=== PATIENT | male | born 1980 | race Caucasian/White ===

== ENCOUNTER 2017-03-29 06:04 | Emergency (ER) | payer MEDICAID ==
[~2017-03-29] VITALS: Ht 182.9 cm; Wt 136.2 kg
[~2017-03-29 06:04] MED LIST: AC500T; ACYC200C PO; CLIN300C3 PO; CPR500T PO; DCS100C PO; HYDR-3714 PO; HYDR-3720 PO; HYDR-756 PO; HYDR2TAB31 PO; INDO50CA PO; METH4TAB PO; MUPI22OI TP; NAPR500T PO; OMEP20CA12 PO; OMEP20TA2 PO; ONDA-42 SL; ONDA-43 PO; ONDA4TAB8 PO; PRM25T PO; SULF1TAB7 PO; TRAM-21 PO
[2017-03-29] MEDS ORDERED: AMOX500C2 (06:17)
[2017-03-29] MEDS ORDERED: FLUC100T6 (06:17)
[2017-03-29] MEDS ORDERED: ONDANSETRON 4 MG (ZOFRAN) ORAL DISSOLVE TAB SL STA (06:20)
--- NOTE | 2017-03-29 06:27 | ED General ---
General Chief Complaint: Abdominal/GI Problems Stated Complaint: N/V/D WITH SOA Nursing Triage Note: c/o n/v/d for a few weeks Nursing Sepsis Screen: No Definite Risk Source of Information: Patient Exam Limitations: No Limitations History of Present Illness Time Seen by Provider: 06:13 Initial Comments Here with report of nausea and vomiting and occasional diarrhea. Currently being treated for strep throat and possible thrush with amoxicillin and antifungal that he doesn't remember the name of. Has had some nausea and vomiting. States that the mucus is part of the problem. He was at work tonight when he was vomiting a couple times and was sent home. States he is able to drink fluids and has been going to work nightly. Has had some diarrhea. Denies significant abdominal pain. Main concern is he wants to protect his job and would like help with the vomiting started go back to work tonight. Does report nasal congestion sore throat that is getting a little better. Timing/Duration: 1 Week, Changing Over Time Severity: Moderate Associated Systoms: Cough, No Fever/Chills, Nausea/Vomiting, No Seizure Allergies and Home Medications Allergies Coded Allergies: No Known Drug Allergies (Unverified , 08/17/08) Home Medications Amoxicillin 500 Mg Capsule, (Reported) Fluconazole 100 Mg Tablet, (Reported) Constitutional: see HPI, No chills, No fever EENTM: nose congestion, throat pain, No ear pain Respiratory: cough, short of breath (mild intermittent) Cardiovascular: no symptoms reported Gastrointestinal: No abdominal pain, diarrhea, nausea, vomiting Genitourinary: no symptoms reported Musculoskeletal: no symptoms reported Skin: no symptoms reported Psychiatric/Neurological: No Symptoms Reported Past Kzdfgez-Geqjzl-Cyhluq Hx Patient Social History Alcohol Use: Denies Use Number of Drinks Today: GG Alcohol Beverage of Choice: Whiskey Recreational Drug Use: No Smoking Status: Never a Smoker Recent Foreign Travel: No Contact w/Someone Who Travel: No Recent Infectious Disease Expo: No Recent Hopitalizations: No Physical Abuse: No Sexual Abuse: No Immunizations Up To Date Tetanus Booster (TDap): Unknown Seasonal Allergies Seasonal Allergies: Yes Surgeries History of Surgeries: Yes Surgeries: Appendectomy, Gallbladder, Tonsillectomy Respiratory History of Respiratory Disorde: No Cardiovascular History of Cardiac Disorders: No Neurological History of Neurological Disord: No Reproductive System Hx Reproductive Disorders: No Sexually Transmitted Disease: No HIV/AIDS: No Gastrointestinal History of Gastrointestinal Di: Yes Gastrointestinal Disorders: Gastroesophageal Reflux, Gall Bladder Disease Musculoskeletal History of Musculoskeletal Dis: No Endocrine History of Endocrine Disorders: No HEENT Loss of Vision: Denies Hearing Impairment: Denies Cancer History of Cancer: No Psychosocial History of Psychiatric Problem: No Suicide Risk Score: 0 Integumentary History of Skin or Integumenta: No Blood Transfusions History of Blood Disorders: No Adverse Reaction to a Blood Tr: No Reviewed Nursing Assessment Reviewed/Agree w Nursing PMH: Yes Family Medical History Family Medial History: Alcoholism Arthritis Asthma Cardiovascular disease Colon cancer Coronary thrombosis Diabetes mellitus Drug abuse Hypertension Myocardial infarction Psychosocial problem Respiratory disorder Physical Exam Vital Signs Vital Sign - Last 12Hours 03/29/17 06:14 Temp 98.4 Pulse 80 Resp 18 B/P (MAP) 135/94 (108) Pulse Ox 95 Capillary Refill : Less Than 3 Seconds General Appearance: No Apparent Distress, WD/WN HEENT: PERRL/EOMI, TMs Normal, Pharyngeal Erythema, Tonsillar Enlargement, Other (uvular swelling and redness) Neck: Full Range of Motion, Normal Inspection, Non Tender, Supple Respiratory: Lungs Clear, Normal Breath Sounds Cardiovascular: Regular Rate, Rhythm, No Murmur Gastrointestinal: Non Tender, Soft Back: Normal Inspection, No CVA Tenderness, No Vertebral Tenderness Neurologic/Psychiatric: Alert, Oriented x3 Skin: Normal Color, Warm/Dry Progress/Results/Core Measures Suspected Sepsis Recent Fever Within 48 Hours: No Infection Criteria Present: None New/Unexplained Altered Menta: No Sepsis Screen: No Definite Risk Sepsis Diagnosis: SIRS Temperature:98.4 Pulse: 80 Respiratory Rate: 18 Blood Pressure 135 /94 Mean: 108 Results/Orders My Orders Orders - GISSELLE YUNG MD Zofran Sl (03/29/17 06:20) Dexamethasone Injection (Decadron Inject (03/29/17 06:30) Vital Signs/I&O Vital Sign - Last 12Hours 03/29/17 06:14 Temp 98.4 Pulse 80 Resp 18 B/P (MAP) 135/94 (108) Pulse Ox 95 Capillary Refill : Less Than 3 Seconds Blood Pressure Mean: 108 Progress Note : Progress Note Seen and evaluated. Patient has mild symptoms currently so evaluation was limited. We will provide prescriptions as outpatient for nausea and vomiting. Zofran 4 mg by mouth given now. We will give Decadron 10 mg IM now for the upper respiratory symptoms. Discharged home with return precautions. Patient verbalize understanding instructions and agreement with plan. Departure Impression Impression: Primary Impression: Nausea and vomiting Qualified Codes: R11.2 - Nausea with vomiting, unspecified Additional Impression: Upper respiratory infection with cough and congestion Disposition: 01 HOME, SELF-CARE Condition: Improved Departure-Patient Inst. Decision time for Depature: 06:22 Referrals: [facility] (PCP/Family) Primary Care Physician Patient Instructions: Bacterial Upper Respiratory Infection, Adult (DC), Nausea and Vomiting, Adult Add. Discharge Instructions: All discharge instructions reviewed with patient and/or family. Voiced understanding. Take medications as directed. Drink plenty of fluids by drinking small amounts frequently. Clear liquid diet for 24 hours and then advance as tolerated. Follow-up with your Dr. in a few days for recheck. Return for worse pain, fever , vomiting, weakness, breathing problems or other concerns as needed. Scripts Ondansetron (Ondansetron Odt) 4 Mg Tab.rapdis 4 MG PO Q4H Y for NAUSEA/VOMITING, #8 TAB 0 Refills Prov: GISSELLE YUNG MD 03/29/17 Work/School Note: Work Release Form Date Seen in the Emergency Department: Mar 29, 2017 Return to Work: Mar 29, 2017 Restrictions: No Restrictions GISSELLE YUNG MD Mar 29, 2017 06:27
[2017-03-29] MEDS ORDERED: DEXAMETHASONE 10 MG/ML (DECADRON) 1 ML VIAL IM ONE (06:30)
[2017-03-29] MEDS ORDERED: ONDA4TAB11 PO (06:32)
[2017-03-29 06:43] VITALS: BP 135/94
== END 2017-03-29 06:43 | disposition home or self-care (01) ==
LOC: EDUNIT# 06:04 → ER 06:07
DX: J06.9 Acute upper respiratory infection, unspecified (principal); R11.2 Nausea with vomiting, unspecified; K21.9 Gastro-esophageal reflux disease without esophagitis; Z87.19 Personal history of other diseases of the digestive system; Z90.49 Acquired absence of other specified parts of digestive tract; Z82.49 Family history of ischemic heart disease and other diseases of the circulatory system; Z90.89 Acquired absence of other organs
CPT/HCPCS: 99284

== ENCOUNTER 2017-05-09 08:20 | Inpatient (IN) | payer MEDICAID ==
[~2017-05-09] VITALS: Ht 180.3 cm; Wt 122.5 kg
[~2017-05-09 08:20] MED LIST changes: +AMOX500C2; +FLUC100T6; +NAPR-1071 PO; -NAPR500T PO; +ONDA4TAB11 PO
--- OUTSIDE RECORDS SUMMARY | 2017-05-09 08:27 | XMS REPORT | Clinical Summary ---
Author Author [facility] Address Unknown Phone Unavailable Allergies Not on File Current Medications Not on file Active Problems Not on file Social History Tobacco Use Types Packs/Day Years Used Date Never Assessed Sex Assigned at Date Recorded Not on file Plan of Treatment Health Maintenance Due Date Last Done Comments DTaP,Tdap,and Td Vaccines 10/30/1998 (1 - Tdap) Influenza Vaccine (#1) 2016 Results Not on filefrom Last 3 Months
--- OUTSIDE RECORDS SUMMARY | 2017-05-09 08:27 | XMS REPORT ---
Author Author KENNY ROGERS Organization [facility] Address [address] [place] [address] Care Team Providers Care Package Line Relief Operator Name Role Phone KENNY ROGERS Unavailable PROBLEMS Type Condition ICD9-CM Code [id number] Code Onset Dates Condition Status SNOMED Code Problem Anxiety F41.9 Active 64083477 Problem H. 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 08628752 Problem Acute gout of right ankle, unspecified cause M10.9 Active 325002808 Problem Stressful life event affecting family Z63.79 Active 370755312 Problem Reflux esophagitis K21.0 Active 241105171 ALLERGIES No Information SOCIAL HISTORY Never Assessed PLAN OF CARE VITAL SIGNS MEDICATIONS No Known Medications RESULTS Name Result Date Reference Range A1C 2016-07-07 NTI Serum Gel Tube Hemoglobin A1c Please note Please Note: Request Problem Hemoglobin A1c PROCEDURES Procedure Date Ordered Result Body Site GLYCATED HEMOGLOBIN TEST July 07, 2016 IMMUNIZATIONS No Known Immunizations MEDICAL (GENERAL) HISTORY Type Description Date Medical History Gout Medical History acid reflux Surgical History tonsillectomy and adenoidectomy Surgical History appendectomy Surgical History cholecystectomy Surgical History Colonoscopy/EGD at [facility] 05/2016 Hospitalization History Kidney Failure 03/2016
--- OUTSIDE RECORDS SUMMARY | 2017-05-09 08:27 | XMS REPORT ---
Author Author KENNY ROGERS Organization [facility] Address [address] [place] [address] Care Team Providers Care Wire Annealer Name Role Phone KENNY ROGERS Unavailable PROBLEMS Type Condition ICD9-CM Code [id number] Code Onset Dates Condition Status SNOMED Code Problem Anxiety F41.9 Active 68318802 Problem H. 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 Drug Allergy Apr, Active SOCIAL HISTORY Never Assessed PLAN OF CARE Activity Details Follow Up 1 Week Reason:establish care gout VITAL SIGNS Height 70 in 2016-05-19 Weight 285.2 lbs 2016-05-19 Temperature 98.0 degrees Fahrenheit 2016-05-19 Heart Rate 110 bpm 2016-05-19 Respiratory Rate 22 2016-05-19 BMI 40.92 kg/m2 2016-05-19 Blood pressure systolic 128 mmHg 2016-05-19 Blood pressure diastolic 80 mmHg 2016-05-19 MEDICATIONS Medication Instructions Dosage Frequency Start Date End Date Duration Status Amlodipine Besylate 10 MG Orally Once a day 1 tablet 24h 0 Active Uloric 40 MG Orally Once a day 1 tablet 24h Active Coreg 12.5 MG Orally 2 times a day 1 tablet 12h 0 Active PredniSONE 10 mg Orally Once a day 3 tablets 24h Apr, 2 May, 2016 10 days Active RESULTS Name Result Date Reference Range [facility] 2016-05-19 Glucose, Serum 148 65-99 BUN 12 6-20 Creatinine, Serum 1.08 0.76-1.27 eGFR If NonAfricn Am 88 >59 eGFR If Africn Am 102 >59 BUN/Creatinine Ratio 11 8-19 Sodium, Serum 140 134-144 Potassium, Serum 4.4 3.5-5.2 Chloride, Serum 99 96-106 Carbon Dioxide, Total 23 18-29 Calcium, Serum 9.4 8.7-10.2 Protein, Total, Serum 7.6 6.0-8.5 Albumin, Serum 4.6 3.5-5.5 Globulin, Total 3.0 1.5-4.5 A/G Ratio 1.5 1.1-2.5 Bilirubin, Total 0.4 0.0-1.2 Alkaline Phosphatase, S 80 39-117 AST (SGOT) 27 0-40 ALT (SGPT) 33 0-44 PROCEDURES Procedure Date Ordered Result Body Site [facility] May 19, 2016 VENIPUNCT, ROUTINE* May 19, 2016 IMMUNIZATIONS No Known Immunizations MEDICAL (GENERAL) HISTORY Type Description Date Medical History Gout Medical History acid reflux Surgical History tonsillectomy and adenoidectomy Surgical History appendectomy Surgical History cholecystectomy Surgical History Colonoscopy/EGD at [facility] 05/2016 Hospitalization History Kidney Failure 03/2016
--- OUTSIDE RECORDS SUMMARY | 2017-05-09 08:27 | XMS REPORT ---
Author Author KENNY ROGERS [facility] Address [address] [place] [address] Care Team Providers Care Professional Soccer Player Name Role Phone KENNY ROGERS Unavailable PROBLEMS Type Condition ICD9-CM Code [id number] Code Onset Dates Condition Status SNOMED Code Problem Anxiety F41.9 Active 07699310 Problem H. 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 99256165 Problem Acute gout of right ankle, unspecified cause M10.9 Active 233256281 Problem Stressful life event affecting family Z63.79 Active 779881708 Problem Reflux esophagitis K21.0 Active 578090226 ALLERGIES No Information SOCIAL HISTORY Never Assessed PLAN OF CARE VITAL SIGNS MEDICATIONS No Known Medications RESULTS Name Result Date Reference Range LEAD, BLOOD (ADULT) 2016-07-07 Lead, Blood (Adult) 1 0-19 TESTOSTERONE, FREE AND TOTAL 2016-07-07 Testosterone, Serum [phone] Comment: Free Testosterone(Direct) 15.5 8.7-25.1 THYROID ANALYZER 2016-07-07 TSH 1.820 0.450-4.500 URIC ACID, SERUM 2016-07-07 Uric Acid, Serum 8.9 3.7-8.6 A1C 2016-07-07 Hemoglobin A1c 5.5 4.8-5.6 VITAMIN B12 2016-07-07 Vitamin B12 518 211-946 CBC 2016-07-07 WBC 13.1 3.4-10.8 RBC 5.30 4.14-5.80 Hemoglobin 15.5 12.6-17.7 Hematocrit 46.4 37.5-51.0 MCV 88 79-97 MCH 29.2 26.6-33.0 MCHC 33.4 31.5-35.7 RDW 15.3 12.3-15.4 Platelets 321 150-379 Neutrophils 72 Lymphs 20 Monocytes 8 Eos 0 Basos 0 Neutrophils (Absolute) 9.3 1.4-7.0 Lymphs (Absolute) 2.6 0.7-3.1 Monocytes(Absolute) 1.1 0.1-0.9 Eos (Absolute) 0.0 0.0-0.4 Baso (Absolute) 0.0 0.0-0.2 Immature Granulocytes 0 Immature Grans (Abs) 0.0 0.0-0.1 VITAMIN D, 25-H 2016-07-07 Vitamin D, 25-Hydroxy 24.3 30.0-100.0 LIPID PANEL 2016-07-07 Cholesterol, Total 243 100-199 Triglycerides 156 0-149 HDL Cholesterol 48 >39 VLDL Cholesterol Josue 31 5-40 LDL Cholesterol Calc 164 0-99 CMP 2016-07-07 Glucose, Serum 100 65-99 BUN 8 6-20 Creatinine, Serum 1.00 0.76-1.27 eGFR If NonAfricn Am 96 >59 eGFR If Africn Am 111 >59 BUN/Creatinine Ratio 8 8-19 Sodium, Serum 141 134-144 Potassium, Serum 4.6 3.5-5.2 Chloride, Serum 98 96-106 Carbon Dioxide, Total 23 18-29 Calcium, Serum 9.8 8.7-10.2 Protein, Total, Serum 7.7 6.0-8.5 Albumin, Serum 4.7 3.5-5.5 Globulin, Total 3.0 1.5-4.5 A/G Ratio 1.6 1.2-2.2 Bilirubin, Total 0.5 0.0-1.2 Alkaline Phosphatase, S 59 39-117 AST (SGOT) 20 0-40 ALT (SGPT) 26 0-44 Written Authorization 2016-07-07 Written Authorization PROCEDURES Procedure Date Ordered Result Body Site ASSAY OF BLOOD/URIC ACID July 07, 2016 VENIPUNCT, ROUTINE* July 07, 2016 ASSAY OF LEAD July 07, 2016 ASSAY OF TOTAL TESTOSTERONE July 07, 2016 LIPID PANEL July 07, 2016 ASSAY OF VITAMIN D July 07, 2016 COMPREHEN METABOLIC PANEL July 07, 2016 ASSAY THYROID STIM HORMONE July 07, 2016 ASSAY OF TESTOSTERONE July 07, 2016 COMPLETE CBC W/AUTO DIFF WBC July 07, 2016 VITAMIN B-12 July 07, 2016 IMMUNIZATIONS No Known Immunizations MEDICAL (GENERAL) HISTORY Type Description Date Medical History Gout Medical History acid reflux Surgical History tonsillectomy and adenoidectomy Surgical History appendectomy Surgical History cholecystectomy Surgical History Colonoscopy/EGD at [facility] 05/2016 Hospitalization History Kidney Failure 03/2016
--- OUTSIDE RECORDS SUMMARY | 2017-05-09 08:27 | XMS REPORT ---
Author Author KENNY ROGERS [facility] Address [address] [place] [address] Care Team Providers Care Associate Store Director Name Role Phone KENNY ROGERS Unavailable PROBLEMS Type Condition ICD9-CM Code [id number] Code Onset Dates Condition Status SNOMED Code Problem Anxiety F41.9 Active 96087015 Problem H. 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 46277762 Problem Acute gout of right ankle, unspecified cause M10.9 Active 416130769 Problem Stressful life event affecting family Z63.79 Active 667407764 Problem Reflux esophagitis K21.0 Active 685810851 ALLERGIES No Information SOCIAL HISTORY Never Assessed PLAN OF CARE VITAL SIGNS MEDICATIONS No Known Medications RESULTS No Results PROCEDURES No Known procedures IMMUNIZATIONS No Known Immunizations MEDICAL (GENERAL) HISTORY Type Description Date Medical History Gout Medical History acid reflux Surgical History tonsillectomy and adenoidectomy Surgical History appendectomy Surgical History cholecystectomy Surgical History Colonoscopy/EGD at [facility] 05/2016 Hospitalization History Kidney Failure 03/2016
--- OUTSIDE RECORDS SUMMARY | 2017-05-09 08:27 | XMS REPORT ---
Author Author KENNY ROGERS [facility] Address [address] [place] [address] Care Team Providers Care Bulk Plant Agent Name Role Phone KENNY ROGERS Unavailable PROBLEMS Type Condition ICD9-CM Code [id number] Code Onset Dates Condition Status SNOMED Code Problem Anxiety F41.9 Active 84774065 Problem H. 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 11787820 Problem Acute gout of right ankle, unspecified cause M10.9 Active 477804971 Problem Stressful life event affecting family Z63.79 Active 430759087 Problem Reflux esophagitis K21.0 Active 433089149 ALLERGIES No Information SOCIAL HISTORY Never Assessed PLAN OF CARE VITAL SIGNS MEDICATIONS No Known Medications RESULTS No Results PROCEDURES No Known procedures IMMUNIZATIONS No Known Immunizations MEDICAL (GENERAL) HISTORY Type Description Date Medical History Gout Medical History acid reflux Surgical History tonsillectomy and adenoidectomy Surgical History appendectomy Surgical History cholecystectomy Surgical History Colonoscopy/EGD at [facility] 05/2016 Hospitalization History Kidney Failure 03/2016
--- OUTSIDE RECORDS SUMMARY | 2017-05-09 08:27 | XMS REPORT ---
Author Author ABENA MCGINNIS Organization [facility] Address [address] [place] [address] Care Team Providers Care Warpman Name Role Phone RAHEL ABENA Unavailable PROBLEMS Type Condition ICD9-CM Code [id number] Code Onset Dates Condition Status SNOMED Code Problem Anxiety F41.9 Active 92675295 Problem H. 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 Unknown Non Drug Allergy Apr, Unknown SOCIAL HISTORY No smoking Hx information available PLAN OF CARE Activity Details Follow Up prn Reason: VITAL SIGNS Temperature 98.1 degrees Fahrenheit 2016-04-29 Heart Rate 88 bpm 2016-04-29 Respiratory Rate 22 2016-04-29 Blood pressure systolic 122 mmHg 2016-04-29 Blood pressure diastolic 86 mmHg 2016-04-29 MEDICATIONS Medication Instructions Dosage Frequency Start Date End Date Duration Status MethylPREDNISolone 4 MG as directed Apr, Active Zofran ODT 4 MG Orally every 8 hours, PRN 1 tablet on the tongue and allow to dissolve Apr, 03 days Active RESULTS No Results PROCEDURES Procedure Date Ordered Related Diagnosis Body Site Office Visit, Est Pt., Level 3 Apr 29, 2016 SOLUMEDROL (UP TO 125 MG) Apr 29, 2016 THER/PROPH/DIAG INJ, SC/IM Apr 29, 2016 IMMUNIZATIONS Vaccine Route Administration Date Status SOLUMEDROL (UP TO 125 MG) IM Intramuscular Apr 29, 2016 Administered
--- OUTSIDE RECORDS SUMMARY | 2017-05-09 08:28 | XMS REPORT ---
Author ARIEL Chaudhry Organization [employer] Address Unknown Phone Unavailable Care Team Providers Care Pet Resort Concierge Name Role Phone ARIEL TALBOT CP Unavailable Allergies No Known Allergies Problems Problem Type Condition Code Onset Dates Condition Status Problem Health examination of defined subpopulation V70.5 Active Medications No Known Medications Results No Known Results Summary Purpose [employer] Submission
--- OUTSIDE RECORDS SUMMARY | 2017-05-09 08:28 | XMS REPORT ---
Author Author ROSY SIMON [facility] Address [address] [place] [address] Care Team Providers Care Cab Station Attendant Name Role Phone ROSY SIMON Unavailable PROBLEMS Type Condition ICD9-CM Code [id number] Code Onset Dates Condition Status SNOMED Code Problem Anxiety F41.9 Active 62659596 Problem H. 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 51466510 Problem Acute gout of right ankle, unspecified cause M10.9 Active 323761706 Problem Stressful life event affecting family Z63.79 Active 015212858 Problem Reflux esophagitis K21.0 Active 336556952 ALLERGIES No Information SOCIAL HISTORY Never Assessed PLAN OF CARE VITAL SIGNS MEDICATIONS Medication Instructions Dosage Frequency Start Date End Date Duration Status Albuterol Sulfate HFA 108 (90 Base) MCG/ACT Inhalation twice a day 2 puffs as needed 12h 30 Apr, 2016 0 days Active RESULTS No Results PROCEDURES No Known procedures IMMUNIZATIONS No Known Immunizations MEDICAL (GENERAL) HISTORY Type Description Date Medical History Gout Medical History acid reflux Surgical History tonsillectomy and adenoidectomy Surgical History appendectomy Surgical History cholecystectomy Surgical History Colonoscopy/EGD at [facility] 05/2016 Hospitalization History Kidney Failure 03/2016
--- OUTSIDE RECORDS SUMMARY | 2017-05-09 08:28 | XMS REPORT ---
Author Author KENNY ROGERS Organization [facility] Address [address] [place] [address] Care Team Providers Care Transit Planning Manager Name Role Phone KENNY ROGERS Unavailable PROBLEMS Type Condition ICD9-CM Code [id number] Code Onset Dates Condition Status SNOMED Code Problem Anxiety F41.9 Active 38793939 Problem H. 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
[2017-05-09] MEDS ORDERED: cefTRIAXone INJECTION 1,000 MG in NS (IVPB) 50 ML IV ONE (08:30)
--- OUTSIDE RECORDS SUMMARY | 2017-05-09 08:30 | XMS REPORT | Continuity of Care Document ---
Author Author [facility] Organization [facility] Address Unknown Phone Unavailable Allergies Active Description Code Type Severity Reaction Onset Reported/Identified Relationship to Patient Clinical Status Yes No Known Drug Allergies [id number] Drug Allergy Mild N/A 08/17/2008 Medications There is no data. Problems Date Dx Coded Attending Type Code Diagnosis Diagnosed By 08/02/2010 Ot 786.50 CHEST PAIN NOS 08/02/2010 Ot 305.1 TOBACCO USE DISORDER 08/02/2010 Ot 530.81 ESOPHAGEAL REFLUX 08/02/2010 Ot 786.59 CHEST PAIN NEC 06/10/2014 CHECO MCKEON Ot 706.2 SEBACEOUS CYST 09/01/2014 CRISTINA MELÉNDEZ BURR SANDER Ot 074.0 HERPANGINA 09/01/2014 CRISTINA MELÉNDEZ BURR SANDER Ot 462 ACUTE PHARYNGITIS 11/01/2014 NELLY SNELL, ANDREEA Witt Ot 574.00 CHOLELITH W AC CHOLECYST 11/01/2014 NELLY SNELL, ANDREEA Witt Ot 787.03 VOMITING ALONE 11/06/2014 ANDREEA VILLEGAS MD Ot 574.20 CHOLELITHIASIS NOS 11/06/2014 NELLY SNELL, ANDREEA Witt Ot 789.01 ABDOMINAL PAIN, RIGHT UPPER QUADRANT 11/14/2014 ELIOT MCINTYRE DO Ot 574.20 CHOLELITHIASIS NOS 11/14/2014 ELIOT MCINTYRE DO Ot 789.00 ABDOMINAL PAIN, UNSPECIFIED SITE 11/22/2014 JING FLANNERY MD Ot 575.0 ACUTE CHOLECYSTITIS 11/22/2014 JING FLANNERY MD Ot 789.00 ABDOMINAL PAIN, UNSPECIFIED SITE 11/23/2014 HELGA MAYO DO Ot 574.10 CHOLELITH W CHOLECYS NEC 11/23/2014 HELGA MAYO DO Ot 574.20 11/28/2014 JING FLANNERY MD Ot 338.18 OTHER ACUTE POSTOPERATIVE PAIN 11/28/2014 MAYO DO, HELGA D Ot 574.20 11/28/2014 MAYO DO, HELGA D Ot V72.84 11/28/2014 MAYO DO, HELGA D Ot V74.8 12/18/2014 MAYO DO, HELGA D Ot 574.20 12/18/2014 MAYO DO, HELGA D Ot V72.84 12/18/2014 MAYO DO, HELGA D Ot V74.8 01/11/2015 MAYO DO, HELGA D Ot 574.20 01/11/2015 MAYO DO, HELGA D Ot V72.84 01/11/2015 MAYO DO, HELGA D Ot V74.8 01/11/2015 CRISTINA MELÉNDEZ BURR SANDER Ot 274.01 ACUTE GOUTY ARTHROPATHY 01/11/2015 CRISTINA MELÉNDEZ APRN Ot 729.81 SWELLING OF LIMB 01/11/2015 MAYO DO, HELGA D Ot 574.20 01/11/2015 MAYO DO, HELGA D Ot V72.84 01/11/2015 MAYO DO, HELGA D Ot V74.8 12/08/2015 MAYO DO, HELGA D Ot 574.20 CHOLELITHIASIS NOS 12/08/2015 MAYO DO, HELGA D Ot V72.84 EXAM PRE-OPERATIVE NOS 12/08/2015 MAYO DO, HELGA D Ot V74.8 SCREEN-BACTERIAL DIS NEC 12/08/2015 AVA SNELL, SOHA Pearson Ot M10.072 IDIOPATHIC GOUT, LEFT ANKLE AND FOOT 12/08/2015 MAYO DO, HELGA D Ot 574.20 CHOLELITHIASIS NOS 12/08/2015 MAYO DO, HELGA D Ot V72.84 EXAM PRE-OPERATIVE NOS 12/08/2015 MAYO DO, HELGA D Ot V74.8 SCREEN-BACTERIAL DIS NEC 12/11/2015 AVA SNELL, SOHA Pearson Ot M10.072 IDIOPATHIC GOUT, LEFT ANKLE AND FOOT 04/06/2016 CRISTINA MELÉNDEZ APRN Ot M10.072 IDIOPATHIC GOUT, LEFT ANKLE AND FOOT 04/08/2016 CRISTINA MELÉNDEZ APRN Ot M10.072 IDIOPATHIC GOUT, LEFT ANKLE AND FOOT 04/10/2016 NUHA SNELL, CIARA Story Ot F12.10 CANNABIS ABUSE, UNCOMPLICATED 04/10/2016 CIARA BREEN MD Ot K21.9 GASTRO-ESOPHAGEAL REFLUX DISEASE WITHOUT 04/10/2016 CIARA BREEN MD Ot K52.9 NONINFECTIVE GASTROENTERITIS AND COLITIS 04/10/2016 CIARA BREEN MD Ot M54.9 DORSALGIA, UNSPECIFIED 04/10/2016 CIARA BREEN MD Ot N28.9 DISORDER OF KIDNEY AND URETER, UNSPECIFI 04/10/2016 CIARA BREEN MD Ot F12.10 CANNABIS ABUSE, UNCOMPLICATED 04/10/2016 CIARA BREEN MD Ot K21.9 GASTRO-ESOPHAGEAL REFLUX DISEASE WITHOUT 04/10/2016 CIARA BREEN MD Ot K52.9 NONINFECTIVE GASTROENTERITIS AND COLITIS 04/10/2016 CIARA BREEN MD Ot M54.9 DORSALGIA, UNSPECIFIED 04/10/2016 CIARA BREEN MD Ot N28.9 DISORDER OF KIDNEY AND URETER, UNSPECIFI 03/29/2017 HELGA MAYO DO Ot 574.20 CHOLELITHIASIS NOS 03/29/2017 HELGA MAYO DO, Ot V72.84 EXAM PRE-OPERATIVE NOS 03/29/2017 HELGA MAYO DO Ot V74.8 SCREEN-BACTERIAL DIS NEC 03/29/2017 GISSELLE YUNG MD, Ot J06.9 ACUTE UPPER RESPIRATORY INFECTION, UNSPE 03/29/2017 GISSELLE YUNG MD, Ot K21.9 GASTRO-ESOPHAGEAL REFLUX DISEASE WITHOUT 03/29/2017 GISSELLE YUNG MD Ot R11.2 NAUSEA WITH VOMITING, UNSPECIFIED 03/29/2017 GISSELLE YUNG MD, Ot Z82.49 FAMILY HX OF ISCHEM HEART DIS AND OTH DI 03/29/2017 GISSELLE YUNG MD, Ot Z87.19 PERSONAL HISTORY OF OTHER DISEASES OF TH 03/29/2017 GISSELLE YUNG MD, Ot Z90.49 ACQUIRED ABSENCE OF OTHER SPECIFIED PART 03/29/2017 GISSELLE YUNG MD, Ot Z90.89 ACQUIRED ABSENCE OF OTHER ORGANS 03/29/2017 HELGA MAYO DO Ot 574.20 CHOLELITHIASIS NOS 03/29/2017 HELGA MAYO DO, Ot V72.84 EXAM PRE-OPERATIVE NOS 03/29/2017 HELGA MAYO DO, Ot V74.8 SCREEN-BACTERIAL DIS NEC 04/01/2017 GISSELLE YUNG MD, Ot J06.9 ACUTE UPPER RESPIRATORY INFECTION, UNSPE 04/01/2017 GISSELLE YUNG MD, Ot K21.9 GASTRO-ESOPHAGEAL REFLUX DISEASE WITHOUT 04/01/2017 GISSELLE YUNG MD, Ot R11.2 NAUSEA WITH VOMITING, UNSPECIFIED 04/01/2017 GISSELLE YUNG MD, Ot Z82.49 FAMILY HX OF ISCHEM HEART DIS AND OTH DI 04/01/2017 GISSELLE YUNG MD, Ot Z87.19 PERSONAL HISTORY OF OTHER DISEASES OF TH 04/01/2017 GISSELLE YUNG MD, Ot Z90.49 ACQUIRED ABSENCE OF OTHER SPECIFIED PART 04/01/2017 GISSELLE YUNG MD, Ot Z90.89 ACQUIRED ABSENCE OF OTHER ORGANS Procedures There is no data. Results Test Result Range Complete blood count (CBC) with automated white blood cell (WBC) differential - 04/09/16 12:18 Blood leukocytes automated count (number/volume) 14.6 10*3/uL 4.3-11.0 Blood erythrocytes automated count (number/volume) 4.78 10*6/uL 4.35-5.85 Venous blood hemoglobin measurement (mass/volume) 14.1 g/dL 13.3-17.7 Blood hematocrit (volume fraction) 42 % 40-54 Automated erythrocyte mean corpuscular volume 87 [foz_us] 80-99 Automated erythrocyte mean corpuscular hemoglobin (mass per erythrocyte) 30 pg 25-34 Automated erythrocyte mean corpuscular hemoglobin concentration measurement ( mass/volume) 34 g/dL 32-36 Automated erythrocyte distribution width ratio 13.8 % 10.0-14.5 Automated blood platelet count (count/volume) 238 10*3/uL 130-400 Automated blood platelet mean volume measurement 10.6 [foz_us] 7.4-10.4 Automated blood neutrophils/100 leukocytes 72 % 42-75 Automated blood lymphocytes/100 leukocytes 13 % 12-44 Blood monocytes/100 leukocytes 14 % 0-12 Automated blood eosinophils/100 leukocytes 1 % 0-10 Automated blood basophils/100 leukocytes 0 % 0-10 Blood neutrophils automated count (number/volume) 10.6 10*3 1.8-7.8 Blood lymphocytes automated count (number/volume) 1.9 10*3 1.0-4.0 Blood monocytes automated count (number/volume) 2.0 10*3 0.0-1.0 Automated eosinophil count 0.1 10*3/uL 0.0-0.3 Automated blood basophil count (count/volume) 0.0 10*3/uL 0.0-0.1 Comprehensive metabolic panel - 04/09/16 12:18 Serum or plasma sodium measurement (moles/volume) 137 mmol/L 135-145 Serum or plasma potassium measurement (moles/volume) 3.9 mmol/L 3.6-5.0 Serum or plasma chloride measurement (moles/volume) 104 mmol/L 98-107 Carbon dioxide 22 mmol/L 21-32 Serum or plasma anion gap determination (moles/volume) 11 mmol/L 5-14 Serum or plasma urea nitrogen measurement (mass/volume) 25 mg/dL 7-18 Serum or plasma creatinine measurement (mass/volume) 2.84 mg/dL 0.60-1.30 Serum or plasma urea nitrogen/creatinine mass ratio 9 NRG Serum or plasma creatinine measurement with calculation of estimated glomerular filtration rate 25 NRG Serum or plasma glucose measurement (mass/volume) 96 mg/dL 70-105 Serum or plasma calcium measurement (mass/volume) 8.6 mg/dL 8.5-10.1 Serum or plasma total bilirubin measurement (mass/volume) 0.6 mg/dL 0.1-1.0 Serum or plasma alkaline phosphatase measurement (enzymatic activity/volume) 64 U/L 40-136 Serum or plasma aspartate aminotransferase measurement (enzymatic activity/ volume) 32 U/L 5-34 Serum or plasma alanine aminotransferase measurement (enzymatic activity/volume ) 26 U/L 0-55 Serum or plasma protein measurement (mass/volume) 6.7 g/dL 6.4-8.2 Serum or plasma albumin measurement (mass/volume) 3.9 g/dL 3.2-4.5 Lipase - 04/09/16 12:18 Lipase 27 U/L 8-78 Blood manual differential performed detection - 04/09/16 12:18 Blood monocytes/100 leukocytes 7 % NRG Manual blood segmented neutrophils/100 leukocytes 73 % NRG Blood band neutrophils/100 leukocytes 2 % NRG Manual blood lymphocytes/100 leukocytes 15 % NRG Manual eosinophils/100 leukocytes in nose 0 % NRG Manual blood basophils/100 leukocytes 1 % NRG Blood lymphocytes variant/100 leukocytes 2 % NRG Blood erythrocyte morphology finding identification NORMAL NRG Complete urinalysis with reflex to culture - 04/09/16 12:30 Urine color determination YELLOW NRG Urine clarity determination CLEAR NRG Urine pH measurement by test strip 6 5-9 Specific gravity of urine by test strip 1.010 1.016- 1.022 Urine protein assay by test strip, semi-quantitative 3+ NEGATIVE Urine glucose detection by automated test strip NEGATIVE NEGATIVE Erythrocytes detection in urine sediment by light microscopy 3+ NEGATIVE Urine ketones detection by automated test strip NEGATIVE NEGATIVE Urine nitrite detection by test strip NEGATIVE NEGATIVE Urine total bilirubin detection by test strip NEGATIVE NEGATIVE Urine urobilinogen measurement by automated test strip (mass/volume) NORMAL NORMAL Urine leukocyte esterase detection by dipstick NEGATIVE NEGATIVE Automated urine sediment erythrocyte count by microscopy (number/high power field) RARE NRG Automated urine sediment leukocyte count by microscopy (number/high power field ) RARE NRG Bacteria detection in urine sediment by light microscopy NEGATIVE NRG Crystals detection in urine sediment by light microscopy NONE NRG Casts detection in urine sediment by light microscopy NONE NRG Mucus detection in urine sediment by light microscopy NEGATIVE NRG Complete urinalysis with reflex to culture NO NRG Complete blood count (CBC) with automated white blood cell (WBC) differential - 04/10/16 05:20 Blood leukocytes automated count (number/volume) 11.2 10*3/uL 4.3-11.0 Blood erythrocytes automated count (number/volume) 4.38 10*6/uL 4.35-5.85 Venous blood hemoglobin measurement (mass/volume) 12.9 g/dL 13.3-17.7 Blood hematocrit (volume fraction) 39 % 40-54 Automated erythrocyte mean corpuscular volume 88 [foz_us] 80-99 Automated erythrocyte mean corpuscular hemoglobin (mass per erythrocyte) 30 pg 25-34 Automated erythrocyte mean corpuscular hemoglobin concentration measurement ( mass/volume) 34 g/dL 32-36 Automated erythrocyte distribution width ratio 13.7 % 10.0-14.5 Automated blood platelet count (count/volume) 212 10*3/uL 130-400 Automated blood platelet mean volume measurement 10.8 [foz_us] 7.4-10.4 Automated blood neutrophils/100 leukocytes 65 % 42-75 Automated blood lymphocytes/100 leukocytes 20 % 12-44 Blood monocytes/100 leukocytes 14 % 0-12 Automated blood eosinophils/100 leukocytes 1 % 0-10 Automated blood basophils/100 leukocytes 0 % 0-10 Blood neutrophils automated count (number/volume) 7.3 10*3 1.8-7.8 Blood lymphocytes automated count (number/volume) 2.2 10*3 1.0-4.0 Blood monocytes automated count (number/volume) 1.6 10*3 0.0-1.0 Automated eosinophil count 0.1 10*3/uL 0.0-0.3 Automated blood basophil count (count/volume) 0.1 10*3/uL 0.0-0.1 Whole blood basic metabolic panel - 04/10/16 05:20 Serum or plasma sodium measurement (moles/volume) 138 mmol/L 135-145 Serum or plasma potassium measurement (moles/volume) 4.2 mmol/L 3.6-5.0 Serum or plasma chloride measurement (moles/volume) 107 mmol/L 98-107 Carbon dioxide 23 mmol/L 21-32 Serum or plasma anion gap determination (moles/volume) 8 mmol/L 5-14 Serum or plasma urea nitrogen measurement (mass/volume) 28 mg/dL 7-18 Serum or plasma creatinine measurement (mass/volume) 3.01 mg/dL 0.60-1.30 Serum or plasma urea nitrogen/creatinine mass ratio 9 NRG Serum or plasma creatinine measurement with calculation of estimated glomerular filtration rate 24 NRG Serum or plasma glucose measurement (mass/volume) 93 mg/dL 70-105 Serum or plasma calcium measurement (mass/volume) 7.9 mg/dL 8.5-10.1 Urine drug screening test - 04/10/16 10:15 Urine phencyclidine detection by screening method NEGATIVE NEGATIVE Urine benzodiazepines detection by screening method NEGATIVE NEGATIVE Urine cocaine detection NEGATIVE NEGATIVE Urine amphetamines detection by screening method NEGATIVE NEGATIVE Urine methamphetamine detection by screening method NEGATIVE NEGATIVE Urine cannabinoids detection by screening method POSITIVE NEGATIVE Urine opiates detection by screening method POSITIVE NEGATIVE Urine barbiturates detection NEGATIVE NEGATIVE Screening urine tricyclic antidepressants detection NEGATIVE NEGATIVE Urine methadone detection by screening method NEGATIVE NEGATIVE Urine oxycodone detection NEGATIVE NEGATIVE Urine propoxyphene detection NEGATIVE NEGATIVE ANTI-NUCLEAR AB (KAREN) ANALYZER - 04/10/16 10:46 Screening antinuclear antibody (KAREN) assay by enzyme immunoassay <1: 80 <1:80 Serum DNA double strand antibody detection - 04/10/16 10:46 Serum DNA double strand antibody assay (units/volume) 30 [iU]/mL 0-300 Antistreptolysin o (ASO) titer - 04/10/16 10:46 Antistreptolysin o (ASO) titer 77 [iU]/mL 0-120 Serum or plasma complement C3 measurement (mass/volume) - 04/10/16 10:46 Complement C3 nephritic [mass/volume] in serum or plasma 138 % 73-183 Complement C4 [mass/volume] in serum or plasma - 04/10/16 10:46 Complement C4 [mass/volume] in serum or plasma 29 % 15- 59 Serum classic neutrophil cytoplasmic antibody assay (units/volume) - 04/10/16 10:46 Antineutrophil cytoplasmic antibody (ANCA) assay < <1: 20 Antineutrophil cytoplasmic antibody (ANCA) pattern Not Indicated NRG Complete urinalysis with reflex to culture - 04/10/16 10:55 Urine color determination YELLOW NRG Urine clarity determination CLEAR NRG Urine pH measurement by test strip 6 5-9 Specific gravity of urine by test strip 1.010 1.016- 1.022 Urine protein assay by test strip, semi-quantitative 2+ NEGATIVE Urine glucose detection by automated test strip NEGATIVE NEGATIVE Erythrocytes detection in urine sediment by light microscopy 3+ NEGATIVE Urine ketones detection by automated test strip NEGATIVE NEGATIVE Urine nitrite detection by test strip NEGATIVE NEGATIVE Urine total bilirubin detection by test strip NEGATIVE NEGATIVE Urine urobilinogen measurement by automated test strip (mass/volume) NORMAL NORMAL Urine leukocyte esterase detection by dipstick NEGATIVE NEGATIVE Automated urine sediment erythrocyte count by microscopy (number/high power field) NONE NRG Automated urine sediment leukocyte count by microscopy (number/high power field ) [HPF] NRG Bacteria detection in urine sediment by light microscopy TRACE NRG Crystals detection in urine sediment by light microscopy NONE NRG Casts detection in urine sediment by light microscopy NONE NRG Mucus detection in urine sediment by light microscopy NEGATIVE NRG Complete urinalysis with reflex to culture NO NRG Encounters ACCT No. Visit Date/Time Discharge Status Pt. Type Provider Facility Loc./Unit Complaint [id number] 03/29/2017 06:07:00 03/29/2017 06:43:00 DIS Emergency GISSELLE YUNG MD [facility] N/V/D WITH SOA [id number] 04/09/2016 13:05:00 04/10/2016 14:35:00 DIS Inpatient NUHA SNELL, CIARA Story [facility] 4TH ACUTE RENAL INSUFFICIENCY GASTROENTERITIS [id number] 04/06/2016 10:41:00 04/06/2016 12:04:00 DIS Emergency CRISTINA MELÉNDEZ APRN [facility] ER L ANKLE GOUT PAIN/ SWELLING [id number] 12/08/2015 07:12:00 12/08/2015 08:00:00 DIS Emergency SOHA ESCALANTE MD [facility] ER GOUT FLARE UP L GREAT TOE [id number] 01/11/2015 18:03:00 01/11/2015 19:12:00 DIS Emergency CRISTINA MELÉNDEZ APRN [facility] ER R FOOT SWELLING [id number] 11/28/2014 15:47:00 11/28/2014 17:30:00 DIS Emergency JING FLANNERY MD [facility] ER POST SURGERY PAIN [id number] 11/23/2014 07:53:00 11/23/2014 14:50:00 DIS Outpatient HELGA MAYO DO [facility] SDC CHOLELITHIASIS [id number] 11/22/2014 07:37:00 11/22/2014 11:19:00 DIS Emergency JING FLANNERY MD [facility] ER ABD PAIN [id number] 11/20/2014 12:56:00 11/20/2014 23:59:59 CLS Outpatient HELGA MAYO DO [facility] PREOP CHOLELITHIASIS [id number] 11/14/2014 21:38:00 11/14/2014 23:45:00 DIS Emergency ELIOT MCINTYRE DO [facility] ER ABD PAIN [id number] 11/06/2014 13:42:00 11/06/2014 15:31:00 DIS Emergency ANDREEA VILLEGAS MD [facility] ER UPPER ABD PAIN/ VOMITING [id number] 11/01/2014 17:14:00 11/01/2014 21:41:00 DIS Emergency ANDREEA VILLEGAS MD [facility] ER VOMITING,RIB CAGE/ BACK PAIN [id number] 09/01/2014 09:18:00 09/01/2014 11:07:00 DIS Emergency CRISTINA MELÉNDEZ APRN [facility] ER SORE THROAT/SORES ON TONGUE [id number] 06/10/2014 12:53:00 06/10/2014 16:10:00 DIS Emergency CHECO MCKEON [facility] ER INFECTION ON NOSE [id number] 05/09/2017 08:23:00 ACT Emergency EDWIN SNELL, MCEHELLE Cuellar [facility] ER R SIDE JAW/FACE PAIN, SOB [id number] 08/02/2010 02:45:00 Document Registration [id number] 08/01/2010 22:01:00 Document Registration
[2017-05-09] MEDS ORDERED: NS IV 1000 ML 1,000 ML IV ONE ×2 (08:38→09:26)
[2017-05-09] MEDS ORDERED: IOHEXOL 350 MG/ML 100 ML (OMNIPAQUE 350) VIAL IV ONE ×2 (08:45→09:30)
[2017-05-09] MEDS ORDERED: KETOROLAC 30 MG/ML VIAL IVP ONE (08:45)
[2017-05-09] MEDS ORDERED: ONDANSETRON 4 MG/2 ML (SDV) Z0FRAN IVP ONE (08:45)
[2017-05-09] MEDS ORDERED: CATHETER FLUSH 10 ML SYR IV PRN ×2 (08:45→14:00)
[2017-05-09] MEDS ORDERED: NS 100 ML (IVPB) BAG IV ONE ×2 (08:45→09:30)
--- NOTE | 2017-05-09 08:45 | ED EENT ---
History of Present Illness General Chief Complaint: Respiratory Problems Stated Complaint: R SIDE JAW/FACE PAIN, SOB Source: patient Exam Limitations: no limitations History of Present Illness Time seen by provider: 08:34 Initial Comments Patient presents to ER by private conveyance with a chief complaint that for about a week and a half now he's been experiencing on-again off-again right facial pain and swelling in his throat. A week and a half ago he went to [facility] and they did a throat swab told him it was not strep and did a CT scan of his head and neck did not show anything. Put him on an antibiotic which made the swelling and pain in the back of his throat go away but then after he finished the antibiotic within a day or 2 its back yesterday's when it started and he feels that his muffling his voice and while he can drink fluids and breathe okay he is having significant amount of right facial pain again. He has taken only aspirin for it. The pain is very severe and radiates from his right maxillary region up to his right temporalis down to his right jaw. It is worse with eating or drinking. He does not chew or use any tobacco product since he was 17. He has a occasional marijuana cigarettes once or twice a week. He drinks alcohol once a month or less. He denies any recent trauma. He has not had any surgeries on his neck or face. He is nauseated and did vomit once last night because of the pain. Allergies and Home Medications Allergies Coded Allergies: No Known Drug Allergies (Unverified , 08/17/08) Home Medications Amoxicillin 500 Mg Capsule, (Reported) Fluconazole 100 Mg Tablet, (Reported) Ondansetron 4 Mg Tab.rapdis, 4 MG PO Q4H PRN for NAUSEA/VOMITING, #8 Ref 0 Prescribed by: GISSELLE YUNG on 03/29/17 0632 Review of Systems Constitutional: No chills, No diaphoresis, No fever, malaise Eyes: Denies Blindness, Denies Blurred Vision, Denies Pain Ears: Denies Dizziness, Denies Pain Nose: denies clots, denies pain Mouth: pain, swelling, denies purulent discharge Throat: pain, swelling, denies neck stiffness, hoarse, painful swallowing Respiratory: No cough, No phlegm, No short of breath, No stridor, No wheezing Gastrointestinal: nausea, No vomiting Past Mwveckv-Aeqpyi-Ofraqe Hx Patient Social History Alcohol Use: Occasionally Uses Alcohol Beverage of Choice: Whiskey Recreational Drug Use: Yes Drug of Choice: marijuana 1-2 per week Smoking Status: Former Smoker Type Used: Cigarettes Former Smoker, Quit: May 11, 2008 Recent Foreign Travel: No Contact w/Someone Who Travel: No Recent Hopitalizations: No Immunizations Up To Date Tetanus Booster (TDap): Unknown Seasonal Allergies Seasonal Allergies: Yes Surgeries History of Surgeries: Yes Surgeries: Appendectomy, Gallbladder, Tonsillectomy Respiratory History of Respiratory Disorde: No Cardiovascular History of Cardiac Disorders: No Neurological History of Neurological Disord: No Reproductive System Hx Reproductive Disorders: No Sexually Transmitted Disease: No HIV/AIDS: No Gastrointestinal History of Gastrointestinal Di: Yes Gastrointestinal Disorders: Gastroesophageal Reflux, Gall Bladder Disease Musculoskeletal History of Musculoskeletal Dis: No Endocrine History of Endocrine Disorders: No HEENT Loss of Vision: Denies Hearing Impairment: Denies Cancer History of Cancer: No Psychosocial History of Psychiatric Problem: No Integumentary History of Skin or Integumenta: No Blood Transfusions History of Blood Disorders: No Adverse Reaction to a Blood Tr: No Family Medical History Family Medial History: Alcoholism Arthritis Asthma Cardiovascular disease Colon cancer Coronary thrombosis Diabetes mellitus Drug abuse Hypertension Myocardial infarction Psychosocial problem Respiratory disorder Physical Exam Vital Signs Vital Sign - Last 12Hours 05/09/17 08:36 Temp 98.7 Pulse 105 Resp 20 B/P (MAP) 148/122 (131) O2 Delivery Room Air General Appearance: WD/WN, mild distress Eyes: bilateral eye normal inspection, bilateral eye PERRL, bilateral eye EOMI Ears: right ear erythema, right ear tenderness, left ear canal normal (right canal with erythema and tenderness to examination), bilateral ear auricle normal , bilateral ear TM normal Nose: sinus tenderness (right maxillary) Mouth/Throat: maxillary swelling (mild), pharynx swelling, pharynx tenderness, No tongue swollen, tonsillar exudate (tonsils not visualized), No uvula swelling , voice changes (mild hoarseness), other (right-sided soft palate erythema, tenderness and swelling.) Neck: non-tender, full range of motion, supple, normal inspection Cardiovascular: normal peripheral pulses, regular rate, rhythm Respiratory: chest non-tender, lungs clear, normal breath sounds Gastrointestinal: non tender, soft Neurologic/Psychiatric: alert, oriented x 3 Skin: normal color, warm/dry Progress/Results/Core Measures Results/Orders Lab Results Laboratory Tests Test 05/09/17 09:00 05/09/17 09:54 Range/Units White Blood Count 23.8 H 4.3-11.0 10^3/uL Red Blood Count 5.00 4.35-5.85 10^6/uL Hemoglobin 14.8 13.3-17.7 G/DL Hematocrit 43 40-54 % Mean Corpuscular Volume 87 80-99 FL Mean Corpuscular Hemoglobin 30 25-34 PG Mean Corpuscular Hemoglobin Concent 34 32-36 G/DL Red Cell Distribution Width 14.7 H 10.0-14.5 % Platelet Count 345 130-400 10^3/uL Mean Platelet Volume 10.4 7.4-10.4 FL Neutrophils (%) (Auto) 85 H 42-75 % Lymphocytes (%) (Auto) 7 L 12-44 % Monocytes (%) (Auto) 8 0-12 % Eosinophils (%) (Auto) 0 0-10 % Basophils (%) (Auto) 0 0-10 % Neutrophils # (Auto) 20.2 H 1.8-7.8 X 10^3 Lymphocytes # (Auto) 1.7 1.0-4.0 X 10^3 Monocytes # (Auto) 1.9 H 0.0-1.0 X 10^3 Eosinophils # (Auto) 0.0 0.0-0.3 10^3/uL Basophils # (Auto) 0.0 0.0-0.1 10^3/uL Neutrophils % (Manual) 89 % Lymphocytes % (Manual) 6 % Monocytes % (Manual) 5 % Blood Morphology Comment NORMAL Sodium Level 141 135-145 MMOL/L Potassium Level 3.9 3.6-5.0 MMOL/L Chloride Level 103 98-107 MMOL/L Carbon Dioxide Level 25 21-32 MMOL/L Anion Gap 13 5-14 MMOL/L Blood Urea Nitrogen 11 7-18 MG/DL Creatinine 0.97 0.60-1.30 MG/DL Estimat Glomerular Filtration Rate > 60 BUN/Creatinine Ratio 11 Glucose Level 100 70-105 MG/DL Calcium Level 9.3 8.5-10.1 MG/DL Total Bilirubin 0.6 0.1-1.0 MG/DL Aspartate Amino Transf (AST/SGOT) 26 5-34 U/L Alanine Aminotransferase (ALT/SGPT) 31 0-55 U/L Alkaline Phosphatase 96 40-136 U/L C-Reactive Protein High Sensitivity 3.99 H 0.00-0.50 MG/DL Total Protein 8.1 6.4-8.2 GM/DL Albumin 4.4 3.2-4.5 GM/DL Group A Streptococcus Screen NEGATIVE NEGATIVE Prothrombin Time 14.5 12.2-14.7 SEC INR Comment 1.1 0.8-1.4 Activated Partial Thromboplast Time 32 24-35 SEC Lactic Acid Level 1.05 0.50-2.00 MMOL/L My Orders Orders - MECHELLE PINEDA Ekg Tracing (05/09/17 08:23) Saline Lock/Iv-Start (05/09/17 08:30) Cbc With Automated Diff (05/09/17 08:30) Comprehensive Metabolic Panel (05/09/17 08:30) Hs C Reactive Protein (05/09/17 08:30) Rapid Strep A Screen (05/09/17 08:30) Ct Maxillofacial W (05/09/17 08:30) Ct Neck (Soft Tissue) W (05/09/17 08:30) Ceftriaxone Injection (Rocephin Injectio (05/09/17 08:30) Ketorolac Injection (Toradol Injection) (05/09/17 08:45) Ns Iv 1000 Ml (Sodium Chloride 0.9%) (05/09/17 08:38) Ondansetron Injection (Zofran Injectio (05/09/17 08:45) Iohexol Injection (Omnipaque 350 Mg/Ml 1 (05/09/17 08:45) Ns (Ivpb) (Sodium Chloride 0.9% Ivpb Bag (05/09/17 08:45) Sodium Chloride Flush (Catheter Flush Sy (05/09/17 08:45) Pharmacy Communication (Pharmacy Communi (05/09/17 08:40) Fentanyl Injection (Sublimaze Injection (05/09/17 09:15) Manual Differential (05/09/17 09:00) Iohexol Injection (Omnipaque 350 Mg/Ml 1 (05/09/17 09:30) Pharmacy Communication (Pharmacy Communi (05/09/17 09:20) Ns (Ivpb) (Sodium Chloride 0.9% Ivpb Bag (05/09/17 09:30) Vancomycin Injection (Vancomycin Injecti (05/09/17 09:30) Lactic Acid Analyzer (05/09/17 09:26) Blood Culture (05/09/17 09:26) Protime With Inr (05/09/17 09:26) Partial Thromboplastin Time (05/09/17 09:26) O2 (05/09/17 09:26) Saline Lock/Iv-Start (05/09/17 09:26) Vital Signs Adult Sepsis Patie Q1H (05/09/17 09:26) Remove Rings In Anticipation O (05/09/17 09:26) Ns Iv 1000 Ml (Sodium Chloride 0.9%) (05/09/17 09:26) Medications Given in ED Current Medications Medications Dose Ordered Sig/Kailey Route Start Time Stop Time Status Last Admin Dose Admin Ceftriaxone Sodium 1000 mg/ Sodium Chloride 50 ml @ 100 mls/hr ONCE ONCE IV 05/09/17 08:30 05/09/17 08:59 DC 05/09/17 08:59 100 MLS/HR Fentanyl Citrate 50 mcg ONCE ONCE IVP 05/09/17 09:15 05/09/17 09:16 DC 05/09/17 09:22 50 MCG Iohexol 100 ml ONCE ONCE IV 05/09/17 09:30 05/09/17 09:31 DC 05/09/17 09:40 100 ML Ketorolac Tromethamine 15 mg ONCE ONCE IVP 05/09/17 08:45 05/09/17 08:46 DC 05/09/17 08:59 15 MG Ondansetron HCl 4 mg ONCE ONCE IVP 05/09/17 08:45 05/09/17 08:46 DC 05/09/17 08:59 4 MG Sodium Chloride 100 ml ONCE ONCE IV 05/09/17 09:30 05/09/17 09:31 DC 05/09/17 09:40 80 ML Sodium Chloride 1,000 ml @ 0 mls/hr Q0M ONCE IV 05/09/17 08:38 05/09/17 08:39 DC 05/09/17 08:59 1,000 MLS/HR Vancomycin HCl 1000 mg/Sodium Chloride 250 ml @ 250 mls/hr ONCE ONCE IV 05/09/17 09:30 05/09/17 10:29 DC 05/09/17 10:46 250 MLS/HR Vital Signs/I&O Vital Sign - Last 12Hours 05/09/17 05/09/17 05/09/17 08:36 08:59 09:22 Temp 98.7 98.7 98.7 Pulse 105 Resp 20 B/P (MAP) 148/122 (131) O2 Delivery Room Air Progress Note #1: Time: 08:46 Progress Note Despite recent treatment with presumably amoxicillin or cephalosporin patient has had a resumption of symptoms a couple days after discontinuing the antibiotics. Concern for abscess in the soft tissue of the neck or maxillary sinus infection. We'll get some basic labs since it is close to the brain however the patient does not appear to be septic. We'll treat his pain and nausea. His mildly elevated heart rate is probably due to pain and after we get some pain medicines we'll see if that doesn't improve. Progress Note #2: Time: 09:25 Progress Note Negative for group A strep so something like staph or MRSA is more likely and we will increase his antibiotic coverage given his white count 24,000 and include vancomycin. We'll see what the CT scan shows what he is going to need consultation probably on an inpatient basis with ear nose and throat and IV antibiotics. With his mild tachycardia and white count we'll go ahead and complete a sepsis workup. Diagnostic Imaging Diagonstic Imaging: CT (maxillofacial and soft tissue of the neck with contrast) Plain Films/CT/US/NM/MRI: other (maxillofacial/soft tissue neck) Comments NAME: RADHA GILL MED REC#: [id number] PHYSICIAN: MECHELLE PINEDA MD CC: RON MAHER; MECHELLE PINEDA Page 1 of 1 RADIOLOGY REPORT VIA [facility]. [place], [place] CC: RON MAHER TITUS J Page 1 of 1 RADIOLOGY REPORT NAME: RADHA GILL MED REC#: [id number] PT STATUS: REG ER : 1980 PHYSICIAN: MECHELLE PINEDA MD ADMIT DATE: 05/09/17/ER Signed Date of Exam: 05/09/17 CT MAXILLOFACIAL W PROCEDURE: CT maxillofacial with contrast. TECHNIQUE: After intravenous administration of contrast, axial images were obtained through the face and reformatted into coronal and sagittal planes. INDICATION: Facial pain. COMPARISON: None. FINDINGS: Known right tonsillar abscess is present. There is mucosal thickening of the ethmoid and right maxillary sinuses. There is no air-fluid level. Mastoid air cells are clear. The orbits are symmetric. No additional inflammatory or infectious abnormality is seen within the face. Visualized intracranial contents are normal. IMPRESSION: 1. Right tonsillar abscess. 2. Minimal sinus disease without air-fluid levels. Dictated by: Dictated on workstation # [id number] Dict: 05/09/17 1008 Trans: 05/09/17 1020 Interpreted by: RON MAHER Electronically signed by: RON MAHER 05/09/17 1020 NAME: RADHA GILL [facility] REC#: [id number] PHYSICIAN: MECHELLE PINEDA MD CC: RON MAHER; MECHELLE PINEDA Page 1 of 1 RADIOLOGY REPORT VIA [place], [place] CC: RON MAHER; MECHELLE PINEDA Page 1 of 1 RADIOLOGY REPORT NAME: RADHA GILL MED REC#: [id number] PT STATUS: REG ER : 1980 PHYSICIAN: MECHELLE PINEDA MD ADMIT DATE: 05/09/17/ER Signed Date of Exam: 05/09/17 CT NECK (SOFT TISSUE) W PROCEDURE: CT neck soft tissue with contrast. TECHNIQUE: Multiple contiguous axial images were obtained through the neck after the administration of contrast. INDICATION: Sore throat, facial pain. COMPARISON: None. FINDINGS: There is a low density fluid collection in the right peritonsillar pillar compatible with an abscess. This measures approximately 2.5 cm. There is some slight mass effect on the palate and uvula. However, no airway compromise is identified. Small reactive lymph nodes are present bilaterally. There is no mass suspicious for neoplasm. Vascular structures are grossly normal. Visualized skull base anatomy and lung apices normal. Osseous structures are age-appropriate. IMPRESSION: 1. Right tonsillar abscess measuring 2.5 cm. No airway compromise identified 2. Reactive jugular lymph nodes. Dictated by: Dictated on workstation # [id number] Dict: 05/09/17 1007 Trans: 05/09/17 1020 Interpreted by: RON MAHER Electronically signed by: RON MAHER 05/09/17 1020 Reviewed: Reviewed by Me Departure Communication (Admissions) Time/Spoke to Admitting Phy: 10:[address] Joya and she is okay to see the patient. Time/Spoke to Consulting Phy: 10:50 Communication/Consulting Spoke with Dr. Orantes, ENT and when he is finished clinic in about an hour he'll come by and he would prefer to have the patient ER should continue to drain. He would prefer Ceftin 1500 mg every 8 hours. He also wants Decadron 10 mg IV every 8. Impression Impression: Primary Impression: Tonsil, abscess Additional Impression: Sepsis Qualified Codes: A41.9 - Sepsis, unspecified organism Disposition: ADMITTED INPATIENT Condition: Stable Admissions Decision to Admit Reason: Admit from ER (General) Decision to Admit/Date: May 09, 2017 Time/Decision to Admit Time: 10:56 Departure-Patient Inst. Referrals: [facility] (PCP/Family) Primary Care Physician Copy Copies To 1: BRITTANI MORENO TITUS J May 09, 2017 08:45
[2017-05-09 09:12] LABS: BASOPHILS % (AUTO) 0 % (0-10); EOSINOPHILS % (AUTO) 0 % (0-10); HEMATOCRIT 43 % (40-54); HEMOGLOBIN 14.8 G/DL (13.3-17.7); LYMPHOCYTES # (AUTO) 1.7 X 10^3 (1.0-4.0); LYMPHOCYTES % (AUTO) 7 % (12-44); MEAN CORPUSCULAR HEMOGLOBIN 30 PG (25-34); MEAN CORPUSCULAR HGB CONC 34 G/DL (32-36); MEAN CORPUSCULAR VOLUME 87 FL (80-99); MEAN PLATELET VOLUME 10.4 FL (7.4-10.4); MONOCYTES # (AUTO) 1.9 X 10^3 (0.0-1.0); MONOCYTES % (AUTO) 8 % (0-12); NEUTROPHILS # (AUTO) 20.2 X 10^3 (1.8-7.8); NEUTROPHILS % (AUTO) 85 % (42-75); PLATELET COUNT 345 10^3/uL (130-400); RED CELL DISTRIBUTION WIDTH 14.7 % (10.0-14.5); WHITE BLOOD COUNT 23.8 10^3/uL (4.3-11.0)
[2017-05-09] MEDS ORDERED: fentaNYL INJECTION 100 MCG/2 ML AMP IVP ONE ×2 (09:15→11:00)
[2017-05-09] MEDS ORDERED: VANCOMYCIN INJECTION 1,000 MG in NS (IVPB) 250 ML IV ONE (09:30)
[2017-05-09 09:31] LABS: ALANINE AMINOTRANSFERASE 31 U/L (0-55); ALBUMIN 4.4 GM/DL (3.2-4.5); ALKALINE PHOSPHATASE 96 U/L (40-136); BILIRUBIN,TOTAL 0.6 MG/DL (0.1-1.0); BUN/CREATININE RATIO 11; CALCIUM 9.3 MG/DL (8.5-10.1); CARBON DIOXIDE 25 MMOL/L (21-32); CHLORIDE 103 MMOL/L (98-107); CREATININE SERUM 0.97 MG/DL (0.60-1.30); GFR ESTIMATED > 60; GLUCOSE 100 MG/DL (70-105); POTASSIUM 3.9 MMOL/L (3.6-5.0); SODIUM 141 MMOL/L (135-145); TOTAL PROTEIN 8.1 GM/DL (6.4-8.2)
[2017-05-09 09:36] LABS: LYMPHOCYTES % (MANUAL) 6 %; MONOCYTES % (MANUAL) 5 %; NEUTROPHILS % (MANUAL) 89 %; RBC MORPH NORMAL
--- NOTE | 2017-05-09 10:10 | Diagnostic Imaging Report ---
PROCEDURE: CT neck soft tissue with contrast. TECHNIQUE: Multiple contiguous axial images were obtained through the neck after the administration of contrast. INDICATION: Sore throat, facial pain. COMPARISON: None. FINDINGS: There is a low density fluid collection in the right peritonsillar pillar compatible with an abscess. This measures approximately 2.5 cm. There is some slight mass effect on the palate and uvula. However, no airway compromise is identified. Small reactive lymph nodes are present bilaterally. There is no mass suspicious for neoplasm. Vascular structures are grossly normal. Visualized skull base anatomy and lung apices normal. Osseous structures are age-appropriate. IMPRESSION: 1. Right tonsillar abscess measuring 2.5 cm. No airway compromise identified 2. Reactive jugular lymph nodes. Dictated by: Dictated on workstation # [id number]
--- NOTE | 2017-05-09 10:12 | Diagnostic Imaging Report ---
PROCEDURE: CT maxillofacial with contrast. TECHNIQUE: After intravenous administration of contrast, axial images were obtained through the face and reformatted into coronal and sagittal planes. INDICATION: Facial pain. COMPARISON: None. FINDINGS: Known right tonsillar abscess is present. There is mucosal thickening of the ethmoid and right maxillary sinuses. There is no air-fluid level. Mastoid air cells are clear. The orbits are symmetric. No additional inflammatory or infectious abnormality is seen within the face. Visualized intracranial contents are normal. IMPRESSION: 1. Right tonsillar abscess. 2. Minimal sinus disease without air-fluid levels. Dictated by: Dictated on workstation # [id number]
[2017-05-09 10:16] LABS: INR 1.1 (0.8-1.4); PROTHROMBIN TIME PATIENT 14.5 SEC (12.2-14.7)
[2017-05-09] MEDS ORDERED: DEXAMETHASONE 10 MG/ML (DECADRON) 1 ML VIAL IV ONE (11:00)
[2017-05-09] MEDS ORDERED: NS IV 1000 ML 1,000 ML ONE (12:29)
--- OUTSIDE RECORDS SUMMARY | 2017-05-09 12:51 | XMS REPORT | Clinical Summary ---
Author Author [facility] Address Unknown Phone Unavailable Allergies Not on [...]
--- OUTSIDE RECORDS SUMMARY | 2017-05-09 12:54 | XMS REPORT | Continuity of Care Document ---
Author Author [facility] Organization [facility] Address Unknown Phone Unavailable Allergies Active Description Code Type Severity Reaction Onset Reported/Identified Relationship to Patient Clinical Status Yes No Known Drug Allergies [id number] Drug Allergy Mild N/A 08/17/2008 Medications There is no data. Problems Date Dx Coded Attending Type Code Diagnosis Diagnosed By 08/02/2010 Ot 786.50 CHEST PAIN NOS 08/02/2010 Ot 305.1 TOBACCO USE DISORDER 08/02/2010 Ot 530.81 ESOPHAGEAL REFLUX 08/02/2010 Ot 786.59 CHEST PAIN NEC 06/10/2014 CHECO MCKEON Ot 706.2 SEBACEOUS CYST 09/01/2014 CRISTINA MELÉNDEZ [employer] Ot 074.0 HERPANGINA 09/01/2014 CRISTINA MELÉNDEZ [employer] Ot 462 ACUTE PHARYNGITIS 11/01/2014 NELLY SNELL, [...] HELGA D Ot V74.8 01/11/2015 CRISTINA MELÉNDEZ [employer] Ot 274.01 ACUTE GOUTY ARTHROPATHY 01/11/2015 CRISTINA [...] Ot Z90.89 ACQUIRED ABSENCE OF OTHER ORGANS 05/09/2017 HELGA MAYO DO Ot 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 Results Test [...] automated white blood cell (WBC) differential - 05/09/17 09:00 Blood leukocytes automated count (number/volume) 23.8 10*3/uL 4.3-11.0 Blood erythrocytes automated count (number/volume) 5.00 10*6/uL 4.35-5.85 Venous blood hemoglobin measurement (mass/volume) 14.8 g/dL 13.3-17.7 Blood hematocrit (volume fraction) 43 % 40-54 Automated erythrocyte mean corpuscular volume 87 [foz_us] 80-99 Automated erythrocyte mean corpuscular hemoglobin (mass per erythrocyte) 30 pg 25-34 Automated erythrocyte mean corpuscular hemoglobin concentration measurement ( mass/volume) 34 g/dL 32-36 Automated erythrocyte distribution width ratio 14.7 % 10.0-14.5 Automated blood platelet count (count/volume) 345 10*3/uL 130-400 Automated blood platelet mean volume measurement 10.4 [foz_us] 7.4-10.4 Automated blood neutrophils/100 leukocytes 85 % 42-75 Automated blood lymphocytes/100 leukocytes 7 % 12-44 Blood monocytes/100 leukocytes 8 % 0-12 Automated blood eosinophils/100 leukocytes 0 % 0-10 Automated blood basophils/100 leukocytes 0 % 0-10 Blood neutrophils automated count (number/volume) 20.2 10*3 1.8-7.8 Blood lymphocytes automated count (number/volume) 1.7 10*3 1.0-4.0 Blood monocytes automated count (number/volume) 1.9 10*3 0.0-1.0 Automated eosinophil count 0.0 10*3/uL 0.0-0.3 Automated blood basophil count (count/volume) 0.0 10*3/uL 0.0-0.1 Streptococcus pyogenes antigen detection - 05/09/17 09:00 Streptococcus pyogenes antigen detection NEGATIVE NEGATIVE Comprehensive metabolic panel - 05/09/17 09:00 Serum or plasma sodium measurement (moles/volume) 141 mmol/L 135-145 Serum or plasma potassium measurement (moles/volume) 3.9 mmol/L 3.6-5.0 Serum or plasma chloride measurement (moles/volume) 103 mmol/L 98-107 Carbon dioxide 25 mmol/L 21-32 Serum or plasma anion gap determination (moles/volume) 13 mmol/L 5-14 Serum or plasma urea nitrogen measurement (mass/volume) 11 mg/dL 7-18 Serum or plasma creatinine measurement (mass/volume) 0.97 mg/dL 0.60-1.30 Serum or plasma urea nitrogen/creatinine mass ratio 11 NRG Serum or plasma creatinine measurement with calculation of estimated glomerular filtration rate > NRG Serum or plasma glucose measurement (mass/volume) 100 mg/dL 70-105 Serum or plasma calcium measurement (mass/volume) 9.3 mg/dL 8.5-10.1 Serum or plasma total bilirubin measurement (mass/volume) 0.6 mg/dL 0.1-1.0 Serum or plasma alkaline phosphatase measurement (enzymatic activity/volume) 96 U/L 40-136 Serum or plasma aspartate aminotransferase measurement (enzymatic activity/ volume) 26 U/L 5-34 Serum or plasma alanine aminotransferase measurement (enzymatic activity/volume ) 31 U/L 0-55 Serum or plasma protein measurement (mass/volume) 8.1 g/dL 6.4-8.2 Serum or plasma albumin measurement (mass/volume) 4.4 g/dL 3.2-4.5 Serum or plasma C reactive protein measurement (mass/volume) - 05/09/17 09:00 Serum or plasma C reactive protein measurement (mass/volume) 3.99 mg /dL 0.00-0.50 Blood manual differential performed detection - 05/09/17 09:00 Blood monocytes/100 leukocytes 5 % [facility] [place] Manual blood segmented neutrophils/100 leukocytes 89 % NR Manual blood lymphocytes/100 leukocytes 6 % [facility] [place] Blood erythrocyte morphology finding identification NORMAL NR PT panel in platelet poor plasma by coagulation assay - 05/09/17 09:54 Prothrombin time (PT) in platelet poor plasma by coagulation assay 14.5 s 12.2-14.7 INR in platelet poor plasma or blood by coagulation assay 1.1 0.8-1.4 Activated partial thromboplastin time (aPTT) in platelet poor plasma bycoagulation assay - 05/09/17 09:54 Activated partial thromboplastin time (aPTT) in platelet poor plasma bycoagulation assay 32 s 24-35 Blood lactic acid measurement (moles/volume) - 05/09/17 09:54 Blood lactic acid measurement (moles/volume) 1.05 mmol/L 0.50-2.00 Encounters ACCT No. Visit Date/Time Discharge Status Pt. Type Provider Facility Loc./Unit Complaint [id number] 03/29/2017 06:07:00 03/29/2017 06:43:00 DIS Emergency DILSHAD SNELL, GISSELLE Mathews [facility] ER N/V/D WITH SOA [id number] 04/09/2016 13:05:00 04/10/2016 14:35:00 DIS Inpatient NUHA SNELL, CIARA Story [facility] 4TH ACUTE RENAL INSUFFICIENCY GASTROENTERITIS [id number] 04/06/2016 10:41:00 04/06/2016 12:04:00 DIS Emergency CRISTINA MELÉNDEZ APRN [facility] ER L ANKLE GOUT PAIN/ SWELLING [id number] 12/08/2015 07:12:00 12/08/2015 08:00:00 DIS Emergency AVA SNELL, SOHA Pearson [facility] ER GOUT FLARE UP L GREAT TOE [id number] 01/11/2015 18:03:00 01/11/2015 19:12:00 DIS Emergency CRISTINA MELÉNDEZ APRN [facility] ER R FOOT SWELLING [id number] 11/28/2014 15:47:00 11/28/2014 17:30:00 DIS Emergency JING FLANNERY MD [facility] ER POST SURGERY PAIN [id number] 11/23/2014 07:53:00 11/23/2014 14:50:00 DIS Outpatient HELGA MAYO DO [facility] SDC CHOLELITHIASIS [id number] 11/22/2014 07:37:00 11/22/2014 11:19:00 DIS Emergency JING FLANNERY MD [facility] ER ABD PAIN [id number] 11/20/2014 12:56:00 11/20/2014 23:59:59 CLS Outpatient HELGA MAYO DO [facility] PREOP CHOLELITHIASIS [id number] 11/14/2014 21:38:00 11/14/2014 23:45:00 DIS Emergency ELIOT MCINTYRE DO [facility] ER ABD PAIN [id number] 11/06/2014 13:42:00 11/06/2014 15:31:00 DIS Emergency NELLY SNELL, ANDREEA Witt [facility] ER UPPER ABD PAIN/ VOMITING [id number] 11/01/2014 17:14:00 11/01/2014 21:41:00 DIS Emergency NELLY SNELL, ANDREEA Witt [facility] ER VOMITING,RIB CAGE/ BACK PAIN [id number] 09/01/2014 09:18:00 09/01/2014 11:07:00 DIS Emergency CRISTINA MELÉNDEZ APRN [facility] ER SORE THROAT/SORES ON TONGUE [id number] 06/10/2014 12:53:00 06/10/2014 16:10:00 DIS Emergency CHECO MCKEON [facility] ER INFECTION ON NOSE [id number] 05/09/2017 10:55:00 ACT Inpatient NAEL SNELL, DELILAH Casiano [facility] 4TH R TONSILAR ABSCESS, SEPSIS [id number] 08/02/2010 02:45:00 Document Registration [id number] 08/01/2010 22:01:00 Document Registration
[2017-05-09] MEDS ORDERED: fentaNYL INJECTION 100 MCG/2 ML AMP ONE (13:50)
[2017-05-09] MEDS: fentaNYL INJECTION 100 MCG/2 ML AMP IV PRN ×3 (13:57→22:20)
[2017-05-09] MEDS ORDERED: ACETAMINOPHEN 500 MG TAB (TYLENOL) PO PRN (14:00)
[2017-05-09] MEDS ORDERED: KETOROLAC 15 MG/ML VIAL IV PRN (14:00)
[2017-05-09] MEDS: CEFUROXIME 1.5 GM/NS 50 ML IVPB IV SCH ×4 (15:03→22:11)
[2017-05-09] MEDS: HYDROcodone/APAP 7.5MG-325 MG/15 ML (LORTAB) UDC PO PRN ×2 (15:12→21:41)
[2017-05-09 16:00] VITALS: BP 130/87
[2017-05-09] MEDS: DEXAMETHASONE 4 MG/ML SDV (DECADRON) IV SCH (19:25)
[2017-05-09] MEDS: NS IV 1000 ML 1,000 ML IV SCH ×2 (19:31→21:26)
[2017-05-09 20:00] VITALS: BP 128/72
[2017-05-10 00:02] VITALS: BP 117/71
[2017-05-10] MEDS: fentaNYL INJECTION 100 MCG/2 ML AMP IV PRN ×3 (03:39→11:19)
[2017-05-10] MEDS: DEXAMETHASONE 4 MG/ML SDV (DECADRON) IV SCH ×2 (03:43→10:28)
[2017-05-10 04:10] VITALS: BP 112/68
[2017-05-10] MEDS: CEFUROXIME 1.5 GM/NS 50 ML IVPB IV SCH ×4 (05:55→12:58)
--- NOTE | 2017-05-10 06:35 | Progress Note-Standard ---
Standard Progress Note Progress Notes/Assess & Plan Date Seen by Provider: May 10, 2017 Time Seen by Provider: 06:30 Progress/Assessment & Plan ENT-Saundra mckenzie seen and evaluataed in ER Large right peritonsillar abscess Drained of 5-6cc of lucho pus felt better after I/D patient is being admitted for observation cefuroxime and decadron written ER Docdtor wrote for pain meds will be ready to go home once gopi diet and infection has camed down would like for him to get at least 24 horus of antibiotics and steroids ENTJosh-05/10-630 much improved gopi diet may advance to regular diet OP-much less swelling -no exudate drain site open intraorally patient needs to stay until he gets his afternoon dose of antibiotics and then fro mmy standpoint can go home prescriptiosn in his chart for discharge and a note for work written patient would like to get a primary care in [place] as [place] RTC-2 weeks Final Diagnosis Right Periotnisllar abscess ROSY LORENZO MD May 10, 2017 6:35 am
[2017-05-10 06:47] LABS: BASOPHILS % (AUTO) 0 % (0-10); EOSINOPHILS % (AUTO) 0 % (0-10); HEMATOCRIT 43 % (40-54); HEMOGLOBIN 14.3 G/DL (13.3-17.7); LYMPHOCYTES # (AUTO) 1.5 X 10^3 (1.0-4.0); LYMPHOCYTES % (AUTO) 8 % (12-44); MEAN CORPUSCULAR HEMOGLOBIN 30 PG (25-34); MEAN CORPUSCULAR HGB CONC 33 G/DL (32-36); MEAN CORPUSCULAR VOLUME 89 FL (80-99); MEAN PLATELET VOLUME 10.5 FL (7.4-10.4); MONOCYTES # (AUTO) 0.6 X 10^3 (0.0-1.0); MONOCYTES % (AUTO) 3 % (0-12); NEUTROPHILS # (AUTO) 16.9 X 10^3 (1.8-7.8); NEUTROPHILS % (AUTO) 89 % (42-75); PLATELET COUNT 322 10^3/uL (130-400); RED BLOOD COUNT 4.85 10^6/uL (4.35-5.85); RED CELL DISTRIBUTION WIDTH 14.9 % (10.0-14.5)
[2017-05-10 07:03] LABS: BUN/CREATININE RATIO 16; CALCIUM 9.1 MG/DL (8.5-10.1); CARBON DIOXIDE 23 MMOL/L (21-32); CHLORIDE 106 MMOL/L (98-107); CREATININE SERUM 0.82 MG/DL (0.60-1.30); GFR ESTIMATED > 60; GLUCOSE 152 MG/DL (70-105); POTASSIUM 4.2 MMOL/L (3.6-5.0); SODIUM 139 MMOL/L (135-145)
[2017-05-10] MEDS: NS IV 1000 ML 1,000 ML IV SCH (07:24)
[2017-05-10 07:28] VITALS: BP 132/91
[2017-05-10] MEDS: ONDANSETRON 4 MG/2 ML (SDV) Z0FRAN IV PRN ×2 (07:31→11:19)
[2017-05-10] MEDS ORDERED: INFLUENZA TRIvalent 2017-2018 0.5 ML/45 MCG SYR IM ONE (08:00)
[2017-05-10] MEDS: HYDROcodone/APAP 7.5MG-325 MG/15 ML (LORTAB) UDC PO PRN (10:24)
[2017-05-10 12:00] VITALS: BP 120/83
--- NOTE | 2017-05-10 12:26 | Short Stay Summary ---
History of Present Illness History of Present Illness Reason for visit/HPI 36 yo admitted from ER with worsening sore throat found to have tonsillar abscess. States that he had been feeling bad for the last 3 days. + fever and chills and cough. + sick contacts at home. Date of Admission May 09, 2017 at 10:55 Date of Discharge 05/10/2017 Time Seen by Provider: 11:35 Attending Physician Delilah Joya MD Admitting Physician [place] Consult Allergies and Home Medications Allergies Coded Allergies: No Known Drug Allergies (Unverified , 08/17/08) Home Medications Amoxicillin 500 Mg Capsule, (Reported) Fluconazole 100 Mg Tablet, (Reported) Ondansetron 4 Mg Tab.rapdis, 4 MG PO Q4H PRN for NAUSEA/VOMITING, #8 Ref 0 Prescribed by: GISSELLE YUNG on 03/29/17 0632 Past Wzgvlqu-Ihwjyi-Hcxkxi Hx Patient Social History Living Status: Lives in home with children Alcohol Use: Occasionally Uses Number of Drinks Today: GG Alcohol Beverage of Choice: Whiskey Recreational Drug Use: Yes Drug of Choice: marijuana 1-2 per week Smoking Status: Former Smoker Former Smoker, Quit: May 11, 2008 Type Used: Cigarettes Physical Abuse Screen: No Sexual Abuse: No Recent Foreign Travel: No Contact w/other who traveled: No Recent Hopitalizations: No Recent Infectious Disease Expo: No Immunizations Up To Date Tetanus Booster (TDap): Unknown Seasonal Allergies Seasonal Allergies: Yes Surgeries Yes (gb, appy) Appendectomy, Gallbladder, Tonsillectomy Respiratory No Cardiovascular No Neurological No Reproductive System Hx Reproductive Disorders: No Sexually Transmitted Disease: No HIV/AIDS: No Gastrointestinal Yes Gastroesophageal Reflux, Gall Bladder Disease Musculoskeletal No Endocrine History of Endocrine Disorders: No HEENT Loss of Vision: Denies Hearing Impairment: Denies Cancer No Psychosocial History of Psychiatric Problem: No Integumentary History of Skin or Integumenta: No Blood Transfusions History of Blood Disorders: No Adverse Reaction to a Blood Tr: No Family Medical History Family Hx: Alcoholism Arthritis Asthma Cardiovascular disease Colon cancer Coronary thrombosis Diabetes mellitus Drug abuse Hypertension Myocardial infarction Psychosocial problem Respiratory disorder Constitutional: fever, malaise EENTM: mouth pain, nose congestion, throat pain, throat swelling Respiratory: cough, dyspnea on exertion Cardiovascular: no symptoms reported, No chest pain, No edema, No palpitations Gastrointestinal: no symptoms reported, No abdominal pain, No constipation, No diarrhea, No nausea, No vomiting Genitourinary: no symptoms reported, No dysuria, No frequency, No hematuria Musculoskeletal: no symptoms reported, No back pain, No joint pain, No muscle pain Skin: no symptoms reported, No lesions, No rash Psychiatric/Neurological: No Symptoms Reported, Denies Anxiety, Denies Depressed Physical Exam Vital Signs Vital Sign - Last 12Hours 05/09/17 05/09/17 08:36 13:20 Temp 98.7 Pulse 105 Resp 20 B/P (MAP) 148/122 (131) Pulse Ox 98 O2 Delivery Room Air Capillary Refill : Less Than 3 Seconds General Appearance: No Apparent Distress, WD/WN, Obese HEENT: PERRL/EOMI, Other (Right tonisilar I&D, draining purulent drainage, + erythema) Neck: Full Range of Motion, Lymphadenopathy (R) Respiratory: Chest Non Tender, Lungs Clear, Normal Breath Sounds, No Accessory Muscle Use, No Respiratory Distress Cardiovascular: Regular Rate, Rhythm, No Edema, No Murmur, Normal Peripheral Pulses Gastrointestinal: Normal Bowel Sounds, No Organomegaly, Non Tender, Soft Back: No CVA Tenderness, No Vertebral Tenderness Extremity: Normal Capillary Refill, Normal Inspection, Normal Range of Motion, No Calf Tenderness, No Pedal Edema Neurologic/Psychiatric: Alert, Oriented x3, No Motor/Sensory Deficits, Normal Mood/Affect, java consultant II-XII Norm as Tested Skin: Normal Color, Warm/Dry Lymphatic: No Adenopathy Clinical Quality Measures DVT/VTE Risk/Contraindication: Risk Factor Score Per Nursin RFS Level Per Nursing on Admit: 1=Low/No VTE PPX Short Stay Diagnosis Discharge Diagnosis-Short Stay Admission Diagnosis: Right Peritonsilar Abscess Throat pain Cough Final Discharge Diagnosis: See Above Conclusion Labs Laboratory Tests 05/10/17 06:30: White Blood Count 19.0H, Red Blood Count 4.85, Hemoglobin 14.3, Hematocrit 43, Mean Corpuscular Volume 89, Mean Corpuscular Hemoglobin 30, Mean Corpuscular Hemoglobin Concent 33, Red Cell Distribution Width 14.9H, Platelet Count 322, Mean Platelet Volume 10.5H, Neutrophils (%) (Auto) 89H, Lymphocytes (%) (Auto) 8L, Monocytes (%) (Auto) 3, Eosinophils (%) (Auto) 0, Basophils (%) (Auto) 0, Neutrophils # (Auto) 16.9H, Lymphocytes # (Auto) 1.5, Monocytes # (Auto) 0.6, Eosinophils # (Auto) 0.0, Basophils # (Auto) 0.0, Sodium Level 139, Potassium Level 4.2, Chloride Level 106, Carbon Dioxide Level 23, Anion Gap 10, Blood Urea Nitrogen 13, Creatinine 0.82, Estimat Glomerular Filtration Rate > 60, BUN/ Creatinine Ratio 16, Glucose Level 152H, Calcium Level 9.1 Conclusion/Plan 36 yo M admitted for Peritonsillar Abscess Right Peritonsillar Abscess s/p I&D - Seen by ENT Dr Orantes for I&D - Give dose of IV Antibiotics at 2 PM and then ok for patient to D/c on PO antibiotics - Continue salt water gargles and soft diet Throat Pain - Motrin and Tylenol for pain Dispo: Home today with followup with [facility] Copy Copies To 1: DELILAH JOYA MD, HOLLY R MD May 10, 2017 12:26
--- NOTE | 2017-05-10 12:33 | Discharge Instructions ---
Discharge [facility] Patient Instructions Goal/Follow Up Appt: You will get called tomorrow with appt at [facility] Patient Instructions: - Make sure to complete your antibioitics - Frequent warm salt water gargles Return to The Hospital For: Troubles breathing Increasing pain Activity & Diet Discharge Diet: No Restrictions Activity as Tolerated: Yes Copy Copies To 1: DELILAH NAYAK MD, HOLLY R MD May 10, 2017 12:33
[2017-05-10] MEDS ORDERED: OMEP20CA12 PO (13:11)
[2017-05-10] MEDS ORDERED: ALLO300T2 PO (13:11)
[2017-05-10] MEDS ORDERED: CEFU250T80 PO (13:21)
[2017-05-10] MEDS ORDERED: PRD20T PO (13:25)
[2017-05-10 14:00] VITALS: BP 120/80
--- NOTE | 2017-05-13 07:17 | CONSULTATION REPORT ---
DATE OF SERVICE: ENT ER NOTE REASON FOR CONSULTATION: Right peritonsillar abscess. HISTORY OF PRESENT ILLNESS: The patient presented to the emergency room earlier this morning with complaints of severe throat pain. He has had a sore throat for the last week, it has progressively worsened, it is to the point where he could not swallow and was not eating. A CT revealed 2 x 3 cm right peritonsillar abscess. He has no prior history of throat problems. PAST MEDICAL HISTORY: Otherwise, unremarkable. ALLERGIES: None known. MEDICATIONS: He had been on amoxicillin. PHYSICAL EXAMINATION: Generally, he is in moderate appearing distress. He was spitting his saliva out. His voice was muffled. Ears: Canals were normal. Tympanic membranes were intact and mobile. Nose: Normal nasal mucosa. Oral cavity showed moderate trismus. He had marked swelling of the right peritonsillar region. Neck, negative to palpation. His airway was intact. PROCEDURE: While in the ER, a verbal consent was obtained. The oral cavity was anesthetized with Hurricaine Lostant. It was the area of the abscess was subsequently injected with 2% Xylocaine with 1:100,000 epinephrine. A 2 cm incision was then made in the superior right peritonsillar region. Immediately pus was freed. Approximately, 6 mL of lucho pus was removed. The abscess cavity was then opened with a tonsil clamp. The patient tolerated the procedure well. IMPRESSION: Right peritonsillar abscess. RECOMMENDATIONS: The abscess was drained as above. He will be admitted for observation on cefuroxime 1.5 grams q.8h as well as Decadron 2 mg IV q.8h. A T and A diet was recommended. If he does well over the next 24 hours, he may be discharged. This has been the ENT consult on the patient from Thursday. Job ID: [id number] DocumentID: [id number] Dictated Date: 05/11/2017 11:05:29 Bead Filler Date: 05/11/2017 12:21:47 Dictated By: ROSY LORENZO MD
== END 2017-05-10 14:00 | disposition home or self-care (01) | DRG 134 ==
LOC: EDUNIT# 08:20 → ER 08:23 → 4TH 10:55
PROVIDERS: ADMIT Family Medicine; ATTEND Family Medicine
PROC: 0C9P0ZZ Drainage of Tonsils, Open Approach (ICD-10-PCS; principal; 2017-05-09)
DX: J36 Peritonsillar abscess (principal); K21.9 Gastro-esophageal reflux disease without esophagitis; Z87.891 Personal history of nicotine dependence
CPT/HCPCS: 36415; 70487; 70491; 80048; 80053; 83605; 85007; 85025; 85027; 85610; 85730; 86141; 87040; 87430

== ENCOUNTER 2017-06-06 08:24 | Emergency (ER) | payer MEDICAID ==
[~2017-06-06] VITALS: Ht 182.9 cm; Wt 117.9 kg
[~2017-06-06 08:24] MED LIST changes: +ALLO300T2 PO; +CEFU250T80 PO; +PRD20T PO
[2017-06-06] MEDS ORDERED: DEXAMETHASONE PF 10 MG/ML (DECADRON) VIAL IM STA (08:40)
[2017-06-06] MEDS ORDERED: HYDROcodone/APAP 7.5 MG/325 MG (LORTAB, LORCET PLUS) TABLET PO STA (08:40)
--- NOTE | 2017-06-06 08:48 | ED General ---
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 PT REPORTS HX OF GOUT Nursing Sepsis Screen: No Definite Risk Source of Information: Patient Exam Limitations: No Limitations History of Present Illness Date Seen by Provider: Jun 06, 2017 Time Seen by Provider: 08:30 Initial Comments Here with left foot pain onset last night and worsening today. Does have history of gout. Pain is in the MTP joint. States he usually gets a shot of steroids and a steroid Dosepak. Does have history of renal failure previously so uses steroids instead. Denies nausea or vomiting. Timing/Duration: 12-24 Hours Severity: Moderate Associated Systoms: No Fever/Chills, No Nausea/Vomiting, No Shortness of Air Allergies and Home Medications Allergies Coded Allergies: No Known Drug Allergies (Unverified , 08/17/08) Home Medications Allopurinol 300 Mg Tablet, 300 MG PO DAILY, (Reported) Cefuroxime Axetil 250 Mg Tablet, 250 MG PO BID, #20 Prescribed by: ARA SCHAEFER on 05/10/17 1321 Fluconazole 100 Mg Tablet, (Reported) Omeprazole 20 Mg Capsule.dr, 30 MG PO DAILY, (Reported) Ondansetron 4 Mg Tab.rapdis, 4 MG PO Q4H PRN for NAUSEA/VOMITING, #8 Ref 0 Prescribed by: GISSELLE YUNG on 03/29/17 0632 Prednisone 20 Mg Tab, 20 MG PO UD, #9 2 TABS PO QAM X 3 DAYS THEN 1 TAB PO X 3 DAYS THEN STOP Prescribed by: ARA SCHAEFER on 05/10/17 1325 Constitutional: see HPI, No chills, No fever Respiratory: no symptoms reported Cardiovascular: no symptoms reported Musculoskeletal: see HPI, gout, joint pain, joint swelling Skin: no symptoms reported Psychiatric/Neurological: No Symptoms Reported Past Yeczckp-Ljruvj-Neiiig Hx Patient Social History Alcohol Use: Denies Use Number of Drinks Today: GG Alcohol Beverage of Choice: Whiskey Recreational Drug Use: No Drug of Choice: marijuana 1-2 per week Smoking Status: Former Smoker Type Used: Cigarettes Former Smoker, Quit: May 11, 2008 Recent Foreign Travel: No Contact w/Someone Who Travel: No Recent Infectious Disease Expo: No Recent Hopitalizations: No Physical Abuse: No Sexual Abuse: No Mistreated: No Fear: No Immunizations Up To Date Tetanus Booster (TDap): Unknown Seasonal Allergies Seasonal Allergies: Yes Surgeries History of Surgeries: Yes (gb, appy) Surgeries: Appendectomy, Gallbladder, Tonsillectomy Respiratory History of Respiratory Disorde: No Cardiovascular History of Cardiac Disorders: No Neurological History of Neurological Disord: No Reproductive System Hx Reproductive Disorders: No Sexually Transmitted Disease: No HIV/AIDS: No Gastrointestinal History of Gastrointestinal Di: Yes Gastrointestinal Disorders: Gastroesophageal Reflux, Gall Bladder Disease Musculoskeletal History of Musculoskeletal Dis: Yes Musculoskeletal Disorders: Gout Endocrine History of Endocrine Disorders: No HEENT Loss of Vision: Denies Hearing Impairment: Denies Cancer History of Cancer: No Psychosocial History of Psychiatric Problem: No Suicide Risk Score: 0 Integumentary History of Skin or Integumenta: No Blood Transfusions History of Blood Disorders: No Adverse Reaction to a Blood Tr: No Reviewed Nursing Assessment Reviewed/Agree w Nursing PMH: Yes Family Medical History Significant Family History: No Pertinent Family Hx Family Medial History: Alcoholism Arthritis Asthma Cardiovascular disease Colon cancer Coronary thrombosis Diabetes mellitus Drug abuse Hypertension Myocardial infarction Psychosocial problem Respiratory disorder Physical Exam Vital Signs Vital Signs - First Documented 06/06/17 08:25 Temp 98.0 Pulse 87 Resp 20 B/P (MAP) 133/89 (104) Pulse Ox 99 O2 Delivery Room Air Capillary Refill : Less Than 3 Seconds General Appearance: No Apparent Distress, WD/WN Respiratory: Lungs Clear, Normal Breath Sounds Cardiovascular: Regular Rate, Rhythm, No Murmur Extremity: Normal Range of Motion, Swelling (right MTP), Other (right great toe with some swelling and pain. No obvious signs of infection) Neurologic/Psychiatric: Alert, Oriented x3 Skin: Normal Color, Warm/Dry Progress/Results/Core Measures Suspected Sepsis Recent Fever Within 48 Hours: No Infection Criteria Present: None New/Unexplained Altered Menta: No Sepsis Screen: No Definite Risk Sepsis Diagnosis: SIRS Temperature:98.0 Pulse: 87 Respiratory Rate: 20 Blood Pressure 133 /89 Mean: 104 Results/Orders My Orders Orders - GISSELLE YUNG MD Dexamethasone Pf Injection (Decadron Pf (06/06/17 08:40) Hydrocodone/Apap 7.5/325 Tab (Lortab 7. (06/06/17 08:40) Vital Signs/I&O Vital Sign - Last 12Hours 06/06/17 08:25 Temp 98.0 Pulse 87 Resp 20 B/P (MAP) 133/89 (104) Pulse Ox 99 O2 Delivery Room Air Capillary Refill : Less Than 3 Seconds Blood Pressure Mean: 104 Progress Note : Progress Note Seen and evaluated. Decadron 10 mg IM and hydrocodone 7.5/325 one tab by mouth. Discharged home with return precautions. Patient verbalize understanding instructions and agreement with plan. Departure Impression Impression: Primary Impression: Gouty arthritis of toe of left foot Disposition: HOME, SELF-CARE Condition: Improved Departure-Patient Inst. Decision time for Depature: 08:49 Referrals: NO,LOCAL PHYSICIAN (PCP/Family) Primary Care Physician Patient Instructions: Gout (DC) Add. Discharge Instructions: All discharge instructions reviewed with patient and/or family. Voiced understanding. Drink plenty of fluids. You may take Tylenol as needed for pain control. Take other medications as directed. You may start steroids tomorrow morning. Return for worse pain, fever, vomiting, weakness, breathing problems or other concerns as needed. Scripts Methylprednisolone (Medrol) 4 Mg Tab.ds.pk 4 MG PO UD, #1 PKG Take per package directions Prov: GISSELLE YUNG MD 06/06/17 GISSELLE YUNG MD Jun 06, 2017 08:48
[2017-06-06] MEDS ORDERED: DEXAMETHASONE 10 MG/ML (DECADRON) 1 ML VIAL ONE (08:52)
[2017-06-06] MEDS ORDERED: METH4TAB PO (08:53)
[2017-06-06 09:00] VITALS: BP 134/85
--- OUTSIDE RECORDS SUMMARY | 2017-06-07 11:04 | XMS REPORT | Clinical Summary ---
Author Author [facility] Address Unknown Phone Unavailable Care Team Providers Care Baker Bread Name Role Phone PP Unavailable Allergies Not on File Current Medications [...]
--- OUTSIDE RECORDS SUMMARY | 2017-06-07 11:08 | XMS REPORT | Continuity of Care Document ---
Author Author [facility] Organization [facility] Address Unknown Phone Unavailable Allergies Active Description Code Type Severity Reaction Onset Reported/Identified Relationship to Patient Clinical Status Yes No Known Drug Allergies [id number] Drug Allergy Mild N/A 08/17/2008 Medications There is no data. Problems Date Dx Coded Attending Type Code Diagnosis Diagnosed By 08/02/2010 Ot 786.50 CHEST PAIN NOS 08/02/2010 Ot 305.1 TOBACCO USE DISORDER 08/02/2010 Ot 530.81 ESOPHAGEAL REFLUX 08/02/2010 Ot 786.59 CHEST PAIN NEC 06/10/2014 CHECO MCKEON Ot 706.2 SEBACEOUS CYST 09/01/2014 CRISTINA MELÉNDEZ BONE PROCESS OPERATOR Ot 074.0 HERPANGINA 09/01/2014 CRISTINA MELÉNDEZ BONE PROCESS OPERATOR Ot 462 ACUTE PHARYNGITIS 11/01/2014 NELLY SNELL, ANDREEA Wtit Ot 574.00 CHOLELITH W AC CHOLECYST 11/01/2014 [...] HELGA D Ot V74.8 01/11/2015 CRISTINA MELÉNDEZ BONE PROCESS OPERATOR Ot 274.01 ACUTE GOUTY ARTHROPATHY 01/11/2015 CRISTINA [...] MAYO DO, Ot V74.8 SCREEN-BACTERIAL DIS NEC 05/10/2017 DELILAH NAYAK MD, Ot J36 PERITONSILLAR ABSCESS 05/10/2017 DELILAH NAYAK MD, Ot K21.9 GASTRO-ESOPHAGEAL REFLUX DISEASE WITHOUT 05/10/2017 DELILAH NAYAK MD, Ot Z87.891 PERSONAL HISTORY OF NICOTINE DEPENDENCE Procedures Code Description Performed By Performed On [id number] DRAINAGE OF TONSILS, OPEN APPROACH 05/09/2017 Results Test Result Range Complete blood count [...] 05/09/17 09:00 Blood monocytes/100 leukocytes 5 % [facility] Manual blood segmented neutrophils/100 leukocytes 89 % NR Manual blood lymphocytes/100 leukocytes 6 % NR Blood erythrocyte morphology finding identification NORMAL NR Bacterial throat culture - 05/09/17 09:00 Bacterial throat culture [id number] NR FREE TEXT EXTERNAL FEW COLONIES OBSERVED ON CULTURE NRG QUANTITY OF GROWTH Abundant Growth NR PT panel in platelet poor plasma [...] lactic acid measurement (moles/volume) 1.05 mmol/L 0.50-2.00 Bacterial blood culture - 05/09/17 09:54 Bacterial blood culture NG NRG Bacterial blood culture - 05/09/17 09:56 Bacterial blood culture NG NRG Complete blood count (CBC) with automated white blood cell (WBC) differential - 05/10/17 06:30 Blood leukocytes automated count (number/volume) 19.0 10*3/uL 4.3-11.0 Blood erythrocytes automated count (number/volume) 4.85 10*6/uL 4.35-5.85 Venous blood hemoglobin measurement (mass/volume) 14.3 g/dL 13.3-17.7 Blood hematocrit (volume fraction) 43 % 40-54 Automated erythrocyte mean corpuscular volume 89 [foz_us] 80-99 Automated erythrocyte mean corpuscular hemoglobin (mass per erythrocyte) 30 pg 25-34 Automated erythrocyte mean corpuscular hemoglobin concentration measurement ( mass/volume) 33 g/dL 32-36 Automated erythrocyte distribution width ratio 14.9 % 10.0-14.5 Automated blood platelet count (count/volume) 322 10*3/uL 130-400 Automated blood platelet mean volume measurement 10.5 [foz_us] 7.4-10.4 Automated blood neutrophils/100 leukocytes 89 % 42-75 Automated blood lymphocytes/100 leukocytes 8 % 12-44 Blood monocytes/100 leukocytes 3 % 0-12 Automated blood eosinophils/100 leukocytes 0 % 0-10 Automated blood basophils/100 leukocytes 0 % 0-10 Blood neutrophils automated count (number/volume) 16.9 10*3 1.8-7.8 Blood lymphocytes automated count (number/volume) 1.5 10*3 1.0-4.0 Blood monocytes automated count (number/volume) 0.6 10*3 0.0-1.0 Automated eosinophil count 0.0 10*3/uL 0.0-0.3 Automated blood basophil count (count/volume) 0.0 10*3/uL 0.0-0.1 Whole blood basic metabolic panel - 05/10/17 06:30 Serum or plasma sodium measurement (moles/volume) 139 mmol/L 135-145 Serum or plasma potassium measurement (moles/volume) 4.2 mmol/L 3.6-5.0 Serum or plasma chloride measurement (moles/volume) 106 mmol/L 98-107 Carbon dioxide 23 mmol/L 21-32 Serum or plasma anion gap determination (moles/volume) 10 mmol/L 5-14 Serum or plasma urea nitrogen measurement (mass/volume) 13 mg/dL 7-18 Serum or plasma creatinine measurement (mass/volume) 0.82 mg/dL 0.60-1.30 Serum or plasma urea nitrogen/creatinine mass ratio 16 NRG Serum or plasma creatinine measurement with calculation of estimated glomerular filtration rate > NRG Serum or plasma glucose measurement (mass/volume) 152 mg/dL 70-105 Serum or plasma calcium measurement (mass/volume) 9.1 mg/dL 8.5-10.1 Encounters ACCT No. Visit Date/Time Discharge Status Pt. Type Provider Facility Loc./Unit Complaint [id number] 05/09/2017 13:30:00 05/10/2017 14:00:00 DIS Outpatient NAEL SNELL, DELILAH Casiano [facility] 4TH R TONSILAR ABSCESS, SEPSIS [id number] 03/29/2017 06:07:00 03/29/2017 06:43:00 DIS Emergency GISSELLE YUNG MD [facility] ER N/V/D WITH SOA [id number] 04/09/2016 13:05:00 04/10/2016 14:35:00 DIS Inpatient CIARA BREEN MD [facility] 4TH ACUTE RENAL INSUFFICIENCY GASTROENTERITIS [id number] 04/06/2016 10:41:00 04/06/2016 12:04:00 DIS Emergency CRISTINA MELÉNDEZ APRN [facility] ER L ANKLE GOUT PAIN/ SWELLING [id number] 12/08/2015 07:12:00 12/08/2015 08:00:00 DIS Emergency AVA SNELL, SOHA Pearson [facility] ER GOUT FLARE UP L GREAT TOE [id number] 01/11/2015 18:03:00 01/11/2015 19:12:00 DIS Emergency CRISTINA MELÉNDEZ APRN [facility] ER R FOOT SWELLING [id number] 11/28/2014 15:47:00 11/28/2014 17:30:00 DIS Emergency JING FLANNERY MD [facility] ER POST SURGERY PAIN [id number] 11/23/2014 07:53:00 11/23/2014 14:50:00 DIS Outpatient HELGA MAYO DO [facility] SDC CHOLELITHIASIS [id number] 11/22/2014 07:37:00 11/22/2014 11:19:00 DIS Emergency JING FLANNERY MD [facility] ER ABD PAIN [id number] 11/20/2014 12:56:00 11/20/2014 23:59:59 CLS Outpatient HELGA MAYO DO [facility] PREOP CHOLELITHIASIS [id number] 11/14/2014 21:38:00 11/14/2014 23:45:00 DIS Emergency FRANCISCO JAVIER ELIOT [facility] ER ABD PAIN [id number] 11/06/2014 13:42:00 11/06/2014 15:31:00 DIS Emergency ANDREEA VILLEGAS MD [facility] ER UPPER ABD PAIN/ VOMITING [id number] 11/01/2014 17:14:00 11/01/2014 21:41:00 DIS Emergency ANDREEA VILLEGAS MD [facility] ER VOMITING,RIB CAGE/ BACK PAIN [id number] 09/01/2014 09:18:00 09/01/2014 11:07:00 DIS Emergency CRISTINA MELÉNDEZ BONE PROCESS OPERATOR [facility] ER SORE THROAT/SORES ON TONGUE [id number] 06/10/2014 12:53:00 06/10/2014 16:10:00 DIS Emergency CHECO MCKEON [facility] ER INFECTION ON NOSE [id number] 08/02/2010 02:45:00 Document Registration [id number] 08/01/2010 22:01:00 Document Registration
== END 2017-06-06 09:00 | disposition home or self-care (01) ==
LOC: EDUNIT# 08:24 → ER 08:25
DX: M10.072 Idiopathic gout, left ankle and foot (principal); K21.9 Gastro-esophageal reflux disease without esophagitis; F17.210 Nicotine dependence, cigarettes, uncomplicated; Z90.89 Acquired absence of other organs; Z90.49 Acquired absence of other specified parts of digestive tract; Z87.891 Personal history of nicotine dependence
CPT/HCPCS: 96372; 99284

== ENCOUNTER 2017-06-12 01:55 | Emergency (ER) | payer MEDICAID ==
[~2017-06-12] VITALS: Ht 182.9 cm; Wt 117.9 kg
[2017-06-12] MEDS ORDERED: LACTATED RINGERS 1,000 ML IV ONE (02:07)
[2017-06-12] MEDS ORDERED: ONDANSETRON 4 MG/2 ML (SDV) Z0FRAN IVP ONE (02:15)
[2017-06-12 02:25] LABS: BASOPHILS % (AUTO) 0 % (0-10); EOSINOPHILS % (AUTO) 0 % (0-10); HEMATOCRIT 43 % (40-54); HEMOGLOBIN 14.5 G/DL (13.3-17.7); LYMPHOCYTES # (AUTO) 2.1 X 10^3 (1.0-4.0); LYMPHOCYTES % (AUTO) 18 % (12-44); MEAN CORPUSCULAR HEMOGLOBIN 29 PG (25-34); MEAN CORPUSCULAR HGB CONC 33 G/DL (32-36); MEAN CORPUSCULAR VOLUME 87 FL (80-99); MEAN PLATELET VOLUME 9.7 FL (7.4-10.4); MONOCYTES # (AUTO) 0.8 X 10^3 (0.0-1.0); MONOCYTES % (AUTO) 7 % (0-12); NEUTROPHILS # (AUTO) 8.7 X 10^3 (1.8-7.8); NEUTROPHILS % (AUTO) 75 % (42-75); PLATELET COUNT 342 10^3/uL (130-400); RED BLOOD COUNT 4.98 10^6/uL (4.35-5.85); RED CELL DISTRIBUTION WIDTH 14.7 % (10.0-14.5); WHITE BLOOD COUNT 11.7 10^3/uL (4.3-11.0)
[2017-06-12 02:47] LABS: ALANINE AMINOTRANSFERASE 19 U/L (0-55); ALBUMIN 4.3 GM/DL (3.2-4.5); ALKALINE PHOSPHATASE 56 U/L (40-136); BILIRUBIN,TOTAL 0.4 MG/DL (0.1-1.0); BUN/CREATININE RATIO 14; CALCIUM 9.4 MG/DL (8.5-10.1); CARBON DIOXIDE 27 MMOL/L (21-32); CHLORIDE 104 MMOL/L (98-107); CREATININE SERUM 1.06 MG/DL (0.60-1.30); GFR ESTIMATED > 60; GLUCOSE 113 MG/DL (70-105); POTASSIUM 3.8 MMOL/L (3.6-5.0); SODIUM 142 MMOL/L (135-145); TOTAL PROTEIN 7.3 GM/DL (6.4-8.2)
[2017-06-12] MEDS ORDERED: RX-OSELTAMIVIR 75 MG (TAMIFLU) BOX OF 10 PO STA (02:56)
[2017-06-12] MEDS ORDERED: RX-ONDANSETRON 4 MG ODT (ZOFRAN) PPK #4 PO STA (02:56)
[2017-06-12] MEDS ORDERED: PANT40TA2 PO (02:59)
[2017-06-12] MEDS ORDERED: HYOS0.1283 SL (02:59)
[2017-06-12] MEDS ORDERED: ONDA4TAB8 PO (02:59)
[2017-06-12] MEDS ORDERED: PANTOPRAZOLE 40 MG (PROTONIX) TAB PO ONE (03:00)
--- NOTE | 2017-06-12 03:02 | ED General ---
General Chief Complaint: General Problems/Pain Stated Complaint: VOMITNG,RUNNY NOSE,COUGH,BROWN Nursing Triage Note: PT TO ED 5 W/ C/O COUGH, CONGESTION, N/V. PT REPORTS ONSET VOMITING AT MIDNOC ET HAS VOMITED X12 ET "IT'S PROJECTILE". S.O. VOICED CONCERN OVER PTS KIDNEY FUNCTION Nursing Sepsis Screen: No Definite Risk Source of Information: Patient History of Present Illness Date Seen by Provider: Jun 12, 2017 Time Seen by Provider: 02:05 Initial Comments PT WITH MULTIPLE COMPLAINTS C/O COUGH AND CONGESTION C/O BODY ACHES SUBJECTIVE FEVER SYMPTOMS BEGAN TODAY BEGAN HAVING NAUSEA AND VOMITING AROUND MIDNIGHT--STATES HE HAS VOMITED 12 TIMES SINCE THEN NO DIARRHEA C/O CRAMPING IN EPIGASTRIC AREA PT WITH MULTIPLE VISITS. WAS HERE 06/06/17 FOR GOUT NO PCP--USED TO SEE DR. CANCINO IN [place] Allergies and Home Medications Allergies Coded Allergies: No Known Drug Allergies (Unverified , 08/17/08) Home Medications Allopurinol 300 Mg Tablet, 300 MG PO DAILY, (Reported) Cefuroxime Axetil 250 Mg Tablet, 250 MG PO BID, #20 Prescribed by: ARA SCHAEFER on 05/10/17 1321 Fluconazole 100 Mg Tablet, (Reported) Hyoscyamine Sulfate 0.125 Mg Tab.subl, 1-2 TAB SL Q4H, #10 Prescribed by: ELIOT MCINTYRE on 06/12/17 0259 Methylprednisolone 4 Mg Tab.ds.pk, 4 MG PO UD, #1 Take per package directions Prescribed by: GISSELLE YUNG on 06/06/17 0853 Omeprazole 20 Mg Capsule.dr, 30 MG PO DAILY, (Reported) Ondansetron 4 Mg Tab.rapdis, 4 MG PO Q4H PRN for NAUSEA/VOMITING, #8 Ref 0 Prescribed by: GISSELLE YUNG on 03/29/17 0632 Ondansetron 4 Mg Tab.rapdis, 4 MG PO Q4H, #10 Prescribed by: ELIOT MCINTYRE on 06/12/17 0259 Pantoprazole Sodium 40 Mg Tablet.dr, 40 MG PO DAILY, #15 Prescribed by: ELIOT MCINTYRE on 06/12/17 0259 Prednisone 20 Mg Tab, 20 MG PO UD, #9 2 TABS PO QAM X 3 DAYS THEN 1 TAB PO X 3 DAYS THEN STOP Prescribed by: ARA SCHAEFER on 05/10/17 1325 Constitutional: see HPI, chills, fever EENTM: nose congestion Respiratory: see HPI, cough, No short of breath, No wheezing Cardiovascular: no symptoms reported Gastrointestinal: see HPI, abdominal pain, nausea, vomiting Genitourinary: no symptoms reported, No decreased output Musculoskeletal: see HPI (BODY ACHES) Skin: no symptoms reported Psychiatric/Neurological: No Symptoms Reported Hematologic/Lymphatic: No Symptoms Reported Past Hhbzose-Ebrazz-Uqpxfi Hx Patient Social History Alcohol Use: Occasionally Uses Number of Drinks Today: GG Alcohol Beverage of Choice: Whiskey Recreational Drug Use: Yes (DAILY) Drug of Choice: MARIJUANA Smoking Status: Former Smoker Type Used: Cigarettes Former Smoker, Quit: May 11, 2008 Recent Foreign Travel: No Contact w/Someone Who Travel: No Recent Infectious Disease Expo: No Recent Hopitalizations: No Physical Abuse: No Sexual Abuse: No Mistreated: No Fear: No Immunizations Up To Date Tetanus Booster (TDap): Unknown Seasonal Allergies Seasonal Allergies: Yes Surgeries History of Surgeries: Yes (gb, appy) Surgeries: Appendectomy, Gallbladder, Tonsillectomy Respiratory History of Respiratory Disorde: No Cardiovascular History of Cardiac Disorders: No Neurological History of Neurological Disord: No Reproductive System Hx Reproductive Disorders: No Sexually Transmitted Disease: No HIV/AIDS: No Gastrointestinal History of Gastrointestinal Di: Yes Gastrointestinal Disorders: Gastroesophageal Reflux, Gall Bladder Disease Musculoskeletal History of Musculoskeletal Dis: Yes Musculoskeletal Disorders: Gout Endocrine History of Endocrine Disorders: No HEENT Loss of Vision: Denies Hearing Impairment: Denies Cancer History of Cancer: No Psychosocial History of Psychiatric Problem: Yes Behavioral Health Disorders: Anxiety Suicide Risk Score: 0 Integumentary History of Skin or Integumenta: No Blood Transfusions History of Blood Disorders: No Adverse Reaction to a Blood Tr: No Family Medical History Significant Family History: No Pertinent Family Hx Family Medial History: Alcoholism Arthritis Asthma Cardiovascular disease Colon cancer Coronary thrombosis Diabetes mellitus Drug abuse Hypertension Myocardial infarction Psychosocial problem Respiratory disorder Physical Exam Vital Signs Vital Signs - First Documented 06/12/17 02:02 Temp 97.2 Pulse 64 Resp 18 B/P (MAP) 128/98 (108) Pulse Ox 99 O2 Delivery Room Air Capillary Refill : Less Than 3 Seconds General Appearance: No Apparent Distress, WD/WN, Obese, Other (FILTHY, MALODOROUS) HEENT: PERRL/EOMI Neck: Normal Inspection Respiratory: Normal Breath Sounds, No Accessory Muscle Use, No Respiratory Distress Cardiovascular: Regular Rate, Rhythm, No Edema, No JVD, No Murmur, Normal Peripheral Pulses Gastrointestinal: Normal Bowel Sounds, No Organomegaly, No Pulsatile Mass, Soft , Tenderness (EPIGASTRIC AREA) Extremity: Normal Inspection Neurologic/Psychiatric: Alert, Oriented x3, No Motor/Sensory Deficits, Normal Mood/Affect, hide puller II-XII Norm as Tested Skin: Normal Color, Warm/Dry Progress/Results/Core Measures Suspected Sepsis Recent Fever Within 48 Hours: No Infection Criteria Present: None New/Unexplained Altered Menta: No Sepsis Screen: No Definite Risk Sepsis Diagnosis: SIRS Temperature:97.2 Pulse: 64 Respiratory Rate: 18 Laboratory Tests 06/12/17 02:18: White Blood Count 11.7H Blood Pressure 128 /98 Mean: 108 Laboratory Tests 06/12/17 02:18: Creatinine 1.06, Platelet Count 342, Total Bilirubin 0.4 Results/Orders Lab Results Laboratory Tests Test 06/12/17 02:18 06/12/17 03:04 Range/Units White Blood Count 11.7 H 4.3-11.0 10^3/uL Red Blood Count 4.98 4.35-5.85 10^6/uL Hemoglobin 14.5 13.3-17.7 G/DL Hematocrit 43 40-54 % Mean Corpuscular Volume 87 80-99 FL Mean Corpuscular Hemoglobin 29 25-34 PG Mean Corpuscular Hemoglobin Concent 33 32-36 G/DL Red Cell Distribution Width 14.7 H 10.0-14.5 % Platelet Count 342 130-400 10^3/uL Mean Platelet Volume 9.7 7.4-10.4 FL Neutrophils (%) (Auto) 75 42-75 % Lymphocytes (%) (Auto) 18 12-44 % Monocytes (%) (Auto) 7 0-12 % Eosinophils (%) (Auto) 0 0-10 % Basophils (%) (Auto) 0 0-10 % Neutrophils # (Auto) 8.7 H 1.8-7.8 X 10^3 Lymphocytes # (Auto) 2.1 1.0-4.0 X 10^3 Monocytes # (Auto) 0.8 0.0-1.0 X 10^3 Eosinophils # (Auto) 0.0 0.0-0.3 10^3/uL Basophils # (Auto) 0.0 0.0-0.1 10^3/uL Sodium Level 142 135-145 MMOL/L Potassium Level 3.8 3.6-5.0 MMOL/L Chloride Level 104 98-107 MMOL/L Carbon Dioxide Level 27 21-32 MMOL/L Anion Gap 11 5-14 MMOL/L Blood Urea Nitrogen 15 7-18 MG/DL Creatinine 1.06 0.60-1.30 MG/DL Estimat Glomerular Filtration Rate > 60 BUN/Creatinine Ratio 14 Glucose Level 113 H 70-105 MG/DL Calcium Level 9.4 8.5-10.1 MG/DL Total Bilirubin 0.4 0.1-1.0 MG/DL Aspartate Amino Transf (AST/SGOT) 17 5-34 U/L Alanine Aminotransferase (ALT/SGPT) 19 0-55 U/L Alkaline Phosphatase 56 40-136 U/L Total Protein 7.3 6.4-8.2 GM/DL Albumin 4.3 3.2-4.5 GM/DL Amylase Level 56 25-125 U/L Lipase 33 8-78 U/L Serum Alcohol 16 H <10 MG/DL Urine Opiates Screen NEGATIVE NEGATIVE Urine Oxycodone Screen NEGATIVE NEGATIVE Urine Methadone Screen NEGATIVE NEGATIVE Urine Propoxyphene Screen NEGATIVE NEGATIVE Urine Barbiturates Screen NEGATIVE NEGATIVE Ur Tricyclic Antidepressants Screen NEGATIVE NEGATIVE Urine Phencyclidine Screen NEGATIVE NEGATIVE Urine Amphetamines Screen NEGATIVE NEGATIVE Urine Methamphetamines Screen NEGATIVE NEGATIVE Urine Benzodiazepines Screen NEGATIVE NEGATIVE Urine Cocaine Screen NEGATIVE NEGATIVE Urine Cannabinoids Screen POSITIVE H NEGATIVE Micro Results Microbiology 06/12/17 Influenza Types A,B Antigen (MAYA) - Final, Complete My Orders Orders - ELIOT MCINTYRE DO Influenza A And B Antigens (06/12/17 02:02) Cbc With Automated Diff (06/12/17 02:11) Comprehensive Metabolic Panel (06/12/17 02:11) Saline Lock/Iv-Start (06/12/17 02:07) Alcohol (06/12/17 02:07) Amylase (06/12/17 02:07) Drug Screen Stat (Urine) (06/12/17 02:07) Lipase (06/12/17 02:07) Ua Culture If Indicated (06/12/17 02:07) Saline Lock/Iv-Start (06/12/17 02:07) Lactated Ringers (Lr 1000 Ml Iv Solution (06/12/17 02:07) Ondansetron Injection (Zofran Injectio (06/12/17 02:15) Rx-Oseltamivir Caps (Rx-Tamiflu Caps) (06/12/17 02:56) Rx-Ondansetron Po (Rx-Zofran Po) (06/12/17 02:56) Pantoprazole Tablet (Protonix Tablet) (06/12/17 03:00) Medications Given in ED Current Medications Medications Dose Ordered Sig/Kailey Route Start Time Stop Time Status Last Admin Dose Admin Lactated Ringer's 1,000 ml @ 0 mls/hr Q0M ONCE IV 06/12/17 02:07 06/12/17 02:48 DC 06/12/17 02:56 1,000 MLS/HR Ondansetron HCl 8 mg ONCE ONCE IVP 06/12/17 02:15 06/12/17 02:48 DC 06/12/17 02:56 8 MG Vital Signs/I&O Vital Sign - Last 12Hours 06/12/17 02:02 Temp 97.2 Pulse 64 Resp 18 B/P (MAP) 128/98 (108) Pulse Ox 99 O2 Delivery Room Air Capillary Refill : Less Than 3 Seconds Blood Pressure Mean: 108 Progress Note : Progress Note NO VOMITING DURING ER STAY. PT TOLERATING LIQUIDS PRIOR TO DISMISSAL Departure Impression Impression: Primary Impression: EXPOSURE TO INFLUENZA A Additional Impressions: Influenza-like illness Nausea & vomiting Disposition: 01 HOME, SELF-CARE Condition: Improved Departure-Patient Inst. Referrals: NO,LOCAL PHYSICIAN (PCP/Family) Primary Care Physician Patient Instructions: Flu, Adult (DC), Nausea and Vomiting, Adult (DC) Add. Discharge Instructions: LOTS OF CLEAR LIQUIDS--WATER, BROTH, JELLO, GATORADE TOMORROW IF YOU ARE BETTER, ADD BRATS DIET TO CLEAR LIQUIDS--BANANAS, RICE, APPLESAUCE, TOAST, SALTINES TYLENOL AND MOTRIN NEEDED FOR PAIN OR FEVER MUCINEX DM FOR COUGH FOLLOW UP WITH IN 2-3 DAYS IF NO BETTER--LIST PROVIDED All discharge instructions reviewed with patient and/or family. Voiced understanding. Scripts Hyoscyamine Sulfate (Levsin-Sl) 0.125 Mg Tab.subl 1-2 TAB SL Q4H for Abdominal Pain, #10 TAB Prov: ELIOT MCINTYRE DO 06/12/17 Pantoprazole Sodium (Protonix) 40 Mg Tablet.dr 40 MG PO DAILY, #15 TAB Prov: ELIOT MCINTYRE DO 06/12/17 Ondansetron (Zofran Odt) 4 Mg Tab.rapdis 4 MG PO Q4H for Nausea/Vomiting, #10 TAB Prov: ELIOT MCINTYRE DO 06/12/17 ELIOT MCINTYRE DO Jun 12, 2017 03:02
[2017-06-12 03:11] LABS: AMYLASE 56 U/L (25-125); LIPASE 33 U/L (8-78)
[2017-06-12 03:15] LABS: BILIRUBIN,URINE NEGATIVE (NEGATIVE); CLARITY,URINE CLEAR; COLOR,URINE YELLOW; GLUCOSE, URINE (UA) NEGATIVE (NEGATIVE); KETONES,URINE NEGATIVE (NEGATIVE); LEUKOCYTE ESTERASE ,URINE NEGATIVE (NEGATIVE); NITRITE,URINE NEGATIVE (NEGATIVE); PH,URINE 7 (5-9); PROTEIN,URINE NEGATIVE (NEGATIVE); UROBILINOGEN,URINE NORMAL (NORMAL)
[2017-06-12 03:51] LABS: AMPHETAMINE SCREEN, URINE NEGATIVE (NEGATIVE); BARBITURATE SCREEN URINE NEGATIVE (NEGATIVE); BENZODIAZEPINES SCREEN URINE NEGATIVE (NEGATIVE); CANNABINOID SCREEN, URINE POSITIVE (NEGATIVE); COCAINE SCREEN URINE NEGATIVE (NEGATIVE); METHADONE STAT NEGATIVE (NEGATIVE); METHAMPHETAMINE SCREEN URINE S NEGATIVE (NEGATIVE); OPIATE SCREEN URINE NEGATIVE (NEGATIVE); OXYCODONE STAT NEGATIVE (NEGATIVE); PROPOXYPHENE STAT NEGATIVE (NEGATIVE); TRICYCLIC ANTIDEPRESSANTS SCRE NEGATIVE (NEGATIVE)
[2017-06-12 04:12] LABS: BACTERIA,URINE NEGATIVE /HPF; SQUAMOUS EPITHELIAL CELL,UR RARE /HPF
[2017-06-12 04:36] VITALS: BP 126/97
== END 2017-06-12 04:36 | disposition home or self-care (01) ==
LOC: EDUNIT# 01:55 → ER 01:58
DX: J11.1 Influenza due to unidentified influenza virus with other respiratory manifestations (principal); R11.2 Nausea with vomiting, unspecified; F41.9 Anxiety disorder, unspecified; M10.9 Gout, unspecified; K21.9 Gastro-esophageal reflux disease without esophagitis; F12.10 Cannabis abuse, uncomplicated; Z90.89 Acquired absence of other organs; Z90.49 Acquired absence of other specified parts of digestive tract; Z87.891 Personal history of nicotine dependence; Z79.52 Long term (current) use of systemic steroids
CPT/HCPCS: 36415; 80053; 80306; 80320; 81000; 82150; 83690; 85025; 87804

== ENCOUNTER 2017-07-11 16:10 | Emergency (ER) | payer MEDICAID ==
[~2017-07-11] VITALS: Ht 182.9 cm; Wt 122.5 kg
[~2017-07-11 16:10] MED LIST changes: +HYOS0.1283 SL; +PANT40TA2 PO
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
[2017-07-11 16:30] LABS: BASOPHILS # (AUTO) 0.1 10^3/uL (0.0-0.1); BASOPHILS % (AUTO) 0 % (0-10); EOSINOPHILS # (AUTO) 0.1 10^3/uL (0.0-0.3); EOSINOPHILS % (AUTO) 1 % (0-10); HEMATOCRIT 44 % (40-54); HEMOGLOBIN 15.1 G/DL (13.3-17.7); LYMPHOCYTES # (AUTO) 3.9 X 10^3 (1.0-4.0); LYMPHOCYTES % (AUTO) 33 % (12-44); MEAN CORPUSCULAR HEMOGLOBIN 30 PG (25-34); MEAN CORPUSCULAR HGB CONC 35 G/DL (32-36); MEAN CORPUSCULAR VOLUME 86 FL (80-99); MEAN PLATELET VOLUME 10.3 FL (7.4-10.4); MONOCYTES # (AUTO) 1.1 X 10^3 (0.0-1.0); MONOCYTES % (AUTO) 10 % (0-12); NEUTROPHILS # (AUTO) 6.6 X 10^3 (1.8-7.8); NEUTROPHILS % (AUTO) 56 % (42-75); PLATELET COUNT 331 10^3/uL (130-400); RED BLOOD COUNT 5.06 10^6/uL (4.35-5.85); RED CELL DISTRIBUTION WIDTH 14.4 % (10.0-14.5); WHITE BLOOD COUNT 11.8 10^3/uL (4.3-11.0)
[2017-07-11] MEDS ORDERED: CATHETER FLUSH 10 ML SYR IV PRN (16:30)
[2017-07-11] MEDS ORDERED: NS 250 ML (IVPB) BAG IV ONE (16:30)
[2017-07-11] MEDS ORDERED: KETOROLAC 30 MG/ML VIAL IVP ONE (16:30)
[2017-07-11] MEDS ORDERED: IOHEXOL 350 MG/ML 100 ML (OMNIPAQUE 350) VIAL IV ONE (16:30)
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
[2017-07-11] MEDS ORDERED: fentaNYL INJECTION 100 MCG/2 ML AMP ONE (17:17)
[2017-07-11 17:20] LABS: BILIRUBIN,URINE NEGATIVE (NEGATIVE); CLARITY,URINE CLEAR; COLOR,URINE YELLOW; GLUCOSE, URINE (UA) NEGATIVE (NEGATIVE); KETONES,URINE NEGATIVE (NEGATIVE); LEUKOCYTE ESTERASE ,URINE NEGATIVE (NEGATIVE); NITRITE,URINE NEGATIVE (NEGATIVE); PH,URINE 6 (5-9); PROTEIN,URINE 1+ (NEGATIVE); UROBILINOGEN,URINE NORMAL (NORMAL)
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
[2017-07-11] MEDS ORDERED: fentaNYL INJECTION 100 MCG/2 ML AMP IVP ONE (17:30)
[2017-07-11 17:31] LABS: BACTERIA,URINE NEGATIVE /HPF; SQUAMOUS EPITHELIAL CELL,UR 0-2 /HPF; WBC,URINE 0-2 /HPF
[2017-07-11] MEDS ORDERED: HYDR-757 PO (17:38)
[2017-07-11 17:39] LABS: AMPHETAMINE SCREEN, URINE NEGATIVE (NEGATIVE); BARBITURATE SCREEN URINE NEGATIVE (NEGATIVE); BENZODIAZEPINES SCREEN URINE NEGATIVE (NEGATIVE); CANNABINOID SCREEN, URINE POSITIVE (NEGATIVE); COCAINE SCREEN URINE NEGATIVE (NEGATIVE); METHADONE STAT NEGATIVE (NEGATIVE); METHAMPHETAMINE SCREEN URINE S NEGATIVE (NEGATIVE); OPIATE SCREEN URINE NEGATIVE (NEGATIVE); OXYCODONE STAT NEGATIVE (NEGATIVE); PROPOXYPHENE STAT NEGATIVE (NEGATIVE); TRICYCLIC ANTIDEPRESSANTS SCRE NEGATIVE (NEGATIVE)
[2017-07-11] MEDS ORDERED: RX-HYDROCODONE/APAP 5/325 MG #4 TAB PK PO PRN (17:45)
[2017-07-11] MEDS ORDERED: HYDROcodone/APAP 10 MG/325 MG (LORTAB) TAB PO ONE ×2 (17:49→18:00)
[2017-07-11 17:53] VITALS: BP 125/93
== END 2017-07-11 17:53 | disposition home or self-care (01) ==
LOC: EDUNIT# 16:13 → ER 16:14
DX: S32.038A Other fracture of third lumbar vertebra, initial encounter for closed fracture (principal); M10.9 Gout, unspecified; F41.9 Anxiety disorder, unspecified; K21.9 Gastro-esophageal reflux disease without esophagitis; F12.10 Cannabis abuse, uncomplicated; Z82.49 Family history of ischemic heart disease and other diseases of the circulatory system; Z80.0 Family history of malignant neoplasm of digestive organs; Z79.52 Long term (current) use of systemic steroids; Z87.19 Personal history of other diseases of the digestive system; Z90.49 Acquired absence of other specified parts of digestive tract; Z90.89 Acquired absence of other organs; V49.40XA Driver injured in collision with unspecified motor vehicles in traffic accident, initial encounter; Y92.410 Unspecified street and highway as the place of occurrence of the external cause
CPT/HCPCS: 36415; 70450; 71260; 72125; 72131; 74177; 80306; 81000; 85025; 96374; 96375

== ENCOUNTER 2017-07-26 10:48 | Inpatient (IN) | payer SELFPAY ==
[~2017-07-26] VITALS: Ht 182.9 cm; Wt 123.8 kg
[~2017-07-26 10:48] MED LIST changes: +HYDR-757 PO
--- OUTSIDE RECORDS SUMMARY | 2017-07-26 10:54 | XMS REPORT | Clinical Summary ---
Author Author [facility] Address Unknown Phone Unavailable Care Team Providers Care Operating Systems Programmer Name Role Phone PP Unavailable Allergies Not [...]
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
[2017-07-26] MEDS ORDERED: NS IV 1000 ML 1,000 ML IV ONE ×2 (11:42→12:31)
[2017-07-26] MEDS ORDERED: KETOROLAC 30 MG/ML VIAL IVP STA (11:42)
[2017-07-26] MEDS ORDERED: ONDANSETRON 4 MG/2 ML (SDV) Z0FRAN IVP ONE (11:45)
[2017-07-26] MEDS ORDERED: NS 250 ML (IVPB) BAG IV ONE (12:00)
[2017-07-26] MEDS ORDERED: IOHEXOL 350 MG/ML 100 ML (OMNIPAQUE 350) VIAL IV ONE (12:00)
[2017-07-26 12:09] LABS: BASOPHILS # (AUTO) 0.1 10^3/uL (0.0-0.1); BASOPHILS % (AUTO) 0 % (0-10); EOSINOPHILS % (AUTO) 0 % (0-10); HEMATOCRIT 46 % (40-54); HEMOGLOBIN 15.6 G/DL (13.3-17.7); LYMPHOCYTES # (AUTO) 2.3 X 10^3 (1.0-4.0); LYMPHOCYTES % (AUTO) 10 % (12-44); MEAN CORPUSCULAR HEMOGLOBIN 29 PG (25-34); MEAN CORPUSCULAR HGB CONC 34 G/DL (32-36); MEAN CORPUSCULAR VOLUME 85 FL (80-99); MEAN PLATELET VOLUME 10.6 FL (7.4-10.4); MONOCYTES % (AUTO) 13 % (0-12); NEUTROPHILS # (AUTO) 17.5 X 10^3 (1.8-7.8); NEUTROPHILS % (AUTO) 77 % (42-75); PLATELET COUNT 318 10^3/uL (130-400); RED BLOOD COUNT 5.35 10^6/uL (4.35-5.85); RED CELL DISTRIBUTION WIDTH 14.5 % (10.0-14.5); WHITE BLOOD COUNT 22.9 10^3/uL (4.3-11.0)
[2017-07-26] MEDS: CATHETER FLUSH 10 ML SYR IV PRN ×2 (12:23→22:01)
[2017-07-26 12:33] LABS: ALANINE AMINOTRANSFERASE 40 U/L (0-55); ALBUMIN 4.8 GM/DL (3.2-4.5); ALKALINE PHOSPHATASE 92 U/L (40-136); BILIRUBIN,TOTAL 1.6 MG/DL (0.1-1.0); BUN/CREATININE RATIO 10; CALCIUM 9.8 MG/DL (8.5-10.1); CARBON DIOXIDE 24 MMOL/L (21-32); CHLORIDE 101 MMOL/L (98-107); CREATININE SERUM 1.09 MG/DL (0.60-1.30); GFR ESTIMATED > 60; GLUCOSE 106 MG/DL (70-105); SODIUM 138 MMOL/L (135-145); TOTAL PROTEIN 8.4 GM/DL (6.4-8.2)
[2017-07-26] MEDS ORDERED: fentaNYL INJECTION 100 MCG/2 ML AMP IVP STA (12:35)
[2017-07-26] MEDS ORDERED: DEXAMETHASONE PF 10 MG/ML (DECADRON) VIAL IV STA (12:35)
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
[2017-07-26] MEDS ORDERED: DEXAMETHASONE 10 MG/ML (DECADRON) 1 ML VIAL ONE (12:42)
[2017-07-26 12:43] LABS: LYMPHOCYTES % (MANUAL) 12 %; MONOCYTES % (MANUAL) 17 %; NEUTROPHILS % (MANUAL) 71 %; RBC MORPH NORMAL
[2017-07-26] MEDS ORDERED: cefTRIAXone INJECTION 1,000 MG in NS (IVPB) 100 ML IV ONE (12:45)
--- OUTSIDE RECORDS SUMMARY | 2017-07-26 13:19 | XMS REPORT | Clinical Summary ---
Author Author [facility] Address Unknown Phone Unavailable Care Team Providers Care Section Housekeeper Name Role Phone PP Unavailable Allergies Not [...]
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
[2017-07-26 13:47] VITALS: BP 106/57
[2017-07-26] MEDS ORDERED: ACETAMINOPHEN 325 MG TABLET/CAPLET (TYLENOL) PO PRN (14:15)
[2017-07-26] MEDS: CEFUROXIME 1.5 GM/NS 100 ML IVPB IV SCH ×4 (14:27→22:01)
[2017-07-26] MEDS: HYDROcodone/APAP 10 MG/325 MG (LORTAB) TAB PO PRN ×2 (14:27→21:06)
[2017-07-26] MEDS: NS IV 1000 ML 1,000 ML IV SCH ×2 (14:28→21:08)
[2017-07-26] MEDS: FAMOTIDINE 20MG/2ML IV (PEPCID) IV SCH ×2 (14:33→22:01)
[2017-07-26] MEDS: fentaNYL INJECTION 100 MCG/2 ML AMP IV PRN (14:48)
[2017-07-26] MEDS ORDERED: HYDROGEN PEROXIDE 473 ML SOLUTION MC SCH (15:00)
--- NOTE | 2017-07-26 15:11 | Progress Note-Standard ---
Standard Progress Note Progress Notes/Assess & Plan Date Seen by Provider: Jul 26, 2017 Time Seen by Provider: 15:00 Progress/Assessment & Plan ENT-Sanjuanita Soni seen and evaluated Recurrent right peritonsillar abscess-no quite aas big as last one minimal trismus fine up until 2 days ago didnt keep his apts with our office Exam-swollen right peritonsillar region x-ray confirms abscess Procedure-verbal consent obtained. area of abscess anesthetized with 2% xylocaine with 1:100,000 epinephrine protected 11 ricardo used to make incision-abscess opened with tonsil clamp 5cc of lucho pus liberated- IMP REcurrent Right Peritonsillar Abscess Rec: 1. Abscess drained as above 2please send home on ceftin 250mg bid for ten days-may already have it at home 3. pred taper-40mg for 3 days and then 20mg for three days-may already have it at home from ER 4. RTC-2 weeks ENT 5. from my stanpodint may discharge after 24-48 hours of IV antibioitcs as long as symptomatically better 6. Call if we need to see again while in hopital 7.stressed the importance of keeping apts otherwise no need for me to continue to see him if he doesnt follow thru with recs Final Diagnosis Right Peritonsillar Abscess Focused Exam Evaluation Lactate Level Laboratory Tests 07/26/17 13:05: Lactic Acid Level 0.81 Lactic Acid Level Laboratory Tests Test 07/26/17 13:05 Lactic Acid Level 0.81 MMOL/L (0.50-2.00) ROSY LORENZO MD Jul 26, 2017 3:11 pm
[2017-07-26] MEDS ORDERED: WATER IR SCH ×2 (15:15)
[2017-07-26] MEDS ORDERED: HYDROGEN PEROXIDE IR SCH ×2 (15:15)
[2017-07-26] MEDS ORDERED: STERILE FOR IRRIGATION IR SCH ×2 (15:15)
[2017-07-26 15:20] VITALS: BP 117/74
[2017-07-26] MEDS: DEXAMETHASONE 4 MG/ML SDV (DECADRON) IV SCH ×2 (15:56→22:01)
[2017-07-26 19:15] VITALS: BP 124/71
[2017-07-26] MEDS: KETOROLAC 30 MG/ML VIAL IV PRN (20:12)
[2017-07-27] VITALS: BP 127/87
[2017-07-27] MEDS: fentaNYL INJECTION 100 MCG/2 ML AMP IV PRN (00:23)
[2017-07-27] MEDS: ONDANSETRON 4 MG/2 ML (SDV) Z0FRAN IV PRN ×2 (00:23→08:15)
[2017-07-27 04:00] VITALS: BP 120/74
[2017-07-27] MEDS: HYDROcodone/APAP 10 MG/325 MG (LORTAB) TAB PO PRN ×3 (04:45→12:34)
[2017-07-27] MEDS: NS IV 1000 ML 1,000 ML IV SCH ×3 (04:45→12:26)
[2017-07-27] MEDS: DEXAMETHASONE 4 MG/ML SDV (DECADRON) IV SCH ×2 (05:40→14:01)
[2017-07-27] MEDS: CEFUROXIME 1.5 GM/NS 100 ML IVPB IV SCH ×4 (05:40→14:02)
[2017-07-27] MEDS: KETOROLAC 30 MG/ML VIAL IV PRN ×2 (06:23→12:34)
[2017-07-27 06:37] LABS: BASOPHILS % (AUTO) 0 % (0-10); EOSINOPHILS % (AUTO) 0 % (0-10); HEMATOCRIT 43 % (40-54); HEMOGLOBIN 14.6 G/DL (13.3-17.7); LYMPHOCYTES # (AUTO) 1.5 X 10^3 (1.0-4.0); LYMPHOCYTES % (AUTO) 9 % (12-44); MEAN CORPUSCULAR HEMOGLOBIN 30 PG (25-34); MEAN CORPUSCULAR HGB CONC 34 G/DL (32-36); MEAN CORPUSCULAR VOLUME 87 FL (80-99); MEAN PLATELET VOLUME 10.6 FL (7.4-10.4); MONOCYTES # (AUTO) 0.5 X 10^3 (0.0-1.0); MONOCYTES % (AUTO) 3 % (0-12); NEUTROPHILS # (AUTO) 14.3 X 10^3 (1.8-7.8); NEUTROPHILS % (AUTO) 88 % (42-75); PLATELET COUNT 299 10^3/uL (130-400); RED BLOOD COUNT 4.94 10^6/uL (4.35-5.85); RED CELL DISTRIBUTION WIDTH 14.3 % (10.0-14.5); WHITE BLOOD COUNT 16.3 10^3/uL (4.3-11.0)
[2017-07-27 07:10] LABS: ALANINE AMINOTRANSFERASE 55 U/L (0-55); ALBUMIN 4.1 GM/DL (3.2-4.5); ALKALINE PHOSPHATASE 79 U/L (40-136); BILIRUBIN,TOTAL 0.6 MG/DL (0.1-1.0); BUN/CREATININE RATIO 13; CALCIUM 8.8 MG/DL (8.5-10.1); CARBON DIOXIDE 22 MMOL/L (21-32); CHLORIDE 109 MMOL/L (98-107); CREATININE SERUM 0.89 MG/DL (0.60-1.30); GFR ESTIMATED > 60; GLUCOSE 166 MG/DL (70-105); POTASSIUM 4.1 MMOL/L (3.6-5.0); SODIUM 138 MMOL/L (135-145); TOTAL PROTEIN 7.2 GM/DL (6.4-8.2)
[2017-07-27 08:00] VITALS: BP 125/78
[2017-07-27] MEDS: FAMOTIDINE 20MG/2ML IV (PEPCID) IV SCH (08:15)
[2017-07-27 12:00] VITALS: BP 134/85
[2017-07-27] MEDS ORDERED: PRD20T PO (12:10)
[2017-07-27] MEDS ORDERED: CEFU250T80 PO (12:10)
--- NOTE | 2017-07-27 12:12 | Discharge Instructions ---
Discharge [facility] Discharge Medications New, Converted or Re-Newed RX: Transmitted to Pharmacy New Medications: Cefuroxime Axetil (Cefuroxime) 250 Mg Tablet 250 MG PO BID for 10 Days, #20 TAB 0 Refills Prednisone (Prednisone) 20 Mg Tab 40 MG PO DAILY, #9 TAB 0 Refills TAKE 40MG DAILY FOR THREE DAYS, THEN TAKE 20MG DAILY FOR 3 DAYS Continued Medications: Omeprazole (Omeprazole) 20 Mg Capsule.dr 40 MG PO DAILY LAST FILLED 04/03/17 #90 / TAKES 2 (20 MG) CAPSULES Patient Instructions Goal/Follow Up Appt: YOU STATED THAT YOU DID NOT WANT TO FOLLOW UP WITH [facility] AND THAT YOU WILL MAKE YOUR OWN APPOINTMENT WITH [facility] IN [place]. PLEASE CALL [facility] IF YOU DECIDE YOU WOULD LIKE AN APPOINTMENT, AND WE WILL ARRANGE FOLLOW UP. Patient Instructions: PLEASE TAKE ALL ANTIBIOTICS AND PREDNISONE PRESCRIBED. PLEASE FOLLOW UP WITH DR LORENZO HE RECOMMENDS. HE IS PLANNING TO REMOVE YOUR TONSILS SO THIS DOES NOT RECUR. YOU MUST HAVE TAKEN ALL YOUR MEDICATIONS IN ORDER FOR HIM TO REMOVE YOUR TONSILS. Return to The Hospital For: INCREASED FEVER OR SIZE OF TONSIL, INABILITY TO SWALLOW. Activity & Diet Discharge Diet: Semi-Solid Diet Activity as Tolerated: Yes Copy Copies To 1: CIARA SANCHES MD, JULIE A MD Jul 27, 2017 12:07
--- NOTE | 2017-07-27 12:15 | History & Physicial (CHS) ---
HPI Attending Physician Rush Allen MD PCP No,Local Physician Consult Date of Admission Jul 26, 2017 at 12:56 Home Medications Home Medications Reviewed patient Home Medication Reconciliation performed by pharmacy medication reconciliations it telecom technician and/or nursing. Patients Allergies have been reviewed. Allergies Coded Allergies: indomethacin (Verified Allergy, Unknown, 07/26/17) PRV-Sjhwuj-Blgidj Hx Patient Social History Alcohol Use: Denies Use Recreational Drug Use: Yes Drug of Choice: MARIJUANA Smoking Status: Former Smoker Type Used: Cigarettes Recent Foreign Travel: No Contact w/other who traveled: No Recent Hopitalizations: No Recent Infectious Disease Expo: No Physical Abuse Screen: No Sexual Abuse: No Immunizations Up To Date Tetanus Booster (TDap): Unknown Family Medical History Significant Family History: No Pertinent Family Hx Family History: Alcoholism Arthritis Asthma Cardiovascular disease Colon cancer Coronary thrombosis Diabetes mellitus Drug abuse Hypertension Myocardial infarction Psychosocial problem Respiratory disorder Physical Exam-(CHC) Physical Exam Vital Signs VS - Last 72 Hours, by Label 07/26/17 07/26/17 07/26/17 07/26/17 11:13 13:47 13:52 15:20 Temp 98.4 98.3 98.4 97.0 Pulse 104 83 90 87 Resp 18 20 18 20 B/P (MAP) 129/101 (110) 106/57 (73) 111/84 117/74 (88) Pulse Ox 98 97 94 95 O2 Delivery Room Air Room Air 07/26/17 07/27/17 07/27/17 07/27/17 19:15 00:00 04:00 08:00 Temp 97.4 96.4 96.4 98.2 Pulse 73 65 60 69 Resp 18 18 19 18 B/P (MAP) 124/71 (88) 127/87 (100) 120/74 (89) 125/78 (94) Pulse Ox 96 97 95 99 O2 Delivery Room Air Room Air Room Air Room Air Capillary Refill : Less Than 3 Seconds Clinical Quality Measures DVT/VTE Risk/Contraindication: Risk Factor Score Per Nursin RFS Level Per Nursing on Admit: 1=Low/No VTE PPX CIARA SANCHES MD Jul 27, 2017 12:15
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
[2017-07-27] MEDS ORDERED: FAMOTIDINE 20 MG (PEPCID) TABLET PO SCH (21:00)
[2017-07-28] MEDS ORDERED: PANTOPRAZOLE 40 MG (PROTONIX) TAB PO SCH (07:00)
[2017-07-28] MEDS ORDERED: OMEPRAZOLE 20 MG (PriLOSEC) CAP NON-FORMULARY PO SCH (09:00)
== END 2017-07-27 15:45 | disposition home or self-care (01) | DRG 872 ==
LOC: EDUNIT# 10:48 → ER 10:50 → 4TH 12:56
PROVIDERS: ADMIT Family Medicine; ATTEND Family Medicine
PROC: 0C9P3ZZ Drainage of Tonsils, Percutaneous Approach (ICD-10-PCS; principal; 2017-07-26)
DX: A41.9 Sepsis, unspecified organism (principal); J36 Peritonsillar abscess; F12.90 Cannabis use, unspecified, uncomplicated; Z87.891 Personal history of nicotine dependence; K21.9 Gastro-esophageal reflux disease without esophagitis; F41.9 Anxiety disorder, unspecified; M10.9 Gout, unspecified
CPT/HCPCS: 36415; 70491; 80053; 83605; 85007; 85025; 85027; 86141; 87040; 96361; 96365; 96375

== ENCOUNTER 2021-06-10 13:15 | Emergency (ER) | payer SELFPAY ==
[~2021-06-10] VITALS: Ht 182 cm; Wt 145.0 kg
[~2021-06-10 13:15] MED LIST changes: +HYDR-4226 PO; +HYDR-4227 PO; -HYDR-756 PO; -HYDR-757 PO; -INDO50CA PO; +INDO50CA82 PO; +OMEP20CA18 PO
--- NOTE | 2021-06-10 13:52 | ED General ---
General Chief Complaint: General Problems/Pain Stated Complaint: L FOOT GOUT Nursing Triage Note: PT TO ED FOR C/O LT FOOT PAIN. PT HAS GOUT AND IT IS FLARED UP. PT BROUGHT TO FT2 VIA WC. Source of Information: Patient Exam Limitations: No Limitations History of Present Illness Date Seen by Provider: Jun 10, 2021 Time Seen by Provider: 13:51 Initial Comments Patient is a 40-year-old male who was brought to the ED by EMS for left big toe pain with swelling. Patient states he has a history of gout. Typically starts in his toes. Currently on allopurinol daily. Symptoms started last night with swelling, pain. Difficulty walking secondary to pain and swelling. Requesting a steroid shot and taper steroids at home. Denies any fever, chills, nausea, vomiting, diarrhea. Denies excessive alcohol use. Denies any current lisinopril. Allergies and Home Medications Allergies Coded Allergies: indomethacin (Verified Allergy, Unknown, 07/26/17) Patient Home Medication List Home Medication List Reviewed: Yes Cefuroxime Axetil (Cefuroxime) 250 Mg Tablet, 250 MG PO BID Prescribed by: CIARA SANCHES on 07/27/17 1210 Methylprednisolone (Methylprednisolone Dose Pack) 4 Mg Tab.ds.pk, 4 MG PO UD Prescribed by: LOTTIE BELCHER on 06/10/21 1356 Omeprazole (Omeprazole) 20 Mg Capsule.dr, 40 MG PO DAILY, (Reported) Entered as Reported by: INOCENTE SPRINGER on 05/10/17 1311 Prednisone (Prednisone) 20 Mg Tab, 40 MG PO DAILY Prescribed by: CIARA SANCHES on 07/27/17 1210 Review of Systems Review of Systems Constitutional: No chills, No diaphoresis, No fever, No malaise EENTM: No ear pain, No blurred vision, No eye pain, No tearing, No throat pain, No throat swelling Respiratory: No cough, No dyspnea on exertion, No short of breath Gastrointestinal: No abdominal pain, No diarrhea, No nausea, No vomiting Genitourinary: No decreased output, No discharge Musculoskeletal: No back pain; gout, joint pain, joint swelling Skin: change in color Psychiatric/Neurological: Denies Anxiety, Denies Depressed Past Bhvjouc-Hzbxsq-Lhzpok Hx Patient Social History Tobacco Use?: No Substance use?: No Alcohol Use?: Yes Alcohol Frequency: Rarely Immunizations Up To Date Tetanus Booster (TDap): Unknown Seasonal Allergies Seasonal Allergies: Yes Past Medical History Surgery/Hospitalization HX: PMH;PT STATES 'I HAVE A LONG ASS LIST, ARE YOU REALLY GOING TO WRITE THIS DOWN. I AM HERE FOR MY GOUT.' SURGERIES;TONSILS AND GALLBLADDER. PT HAS A LONG LIST WELL. Surgeries: Yes (gb, appy) Appendectomy, Gallbladder, Tonsillectomy Respiratory: No Cardiac: No Neurological: Yes Reproductive Disorders: No Sexually Transmitted Disease: No HIV/AIDS: No Gastrointestinal: Yes Gastroesophageal Reflux, Gall Bladder Disease Musculoskeletal: Yes Gout Endocrine: No HEENT: Yes (tonsils pain this admission ) Loss of Vision: Denies Hearing Impairment: Denies Cancer: No Psychosocial: Yes Anxiety, Depression Integumentary: No Blood Disorders: No Adverse Reaction/Blood Tranf: No Family Medical History Alcoholism Arthritis Asthma Cardiovascular disease Colon cancer Coronary thrombosis Diabetes mellitus Drug abuse Hypertension Myocardial infarction Psychosocial problem Respiratory disorder No Pertinent Family Hx Physical Exam Vital Signs Vital Signs - First Documented 06/10/21 13:28 Temp 36.1 Pulse 88 Resp 18 B/P (MAP) 113/83 (93) Pulse Ox 97 O2 Delivery Room Air Capillary Refill : Less Than 3 Seconds Height, Weight, BMI Height: 6'0.00" Weight: 273lbs. 0.0oz. 123.154463tg; 43.00 BMI Method:Stated General Appearance: No Apparent Distress Eyes: Bilateral Eye Normal Inspection, Bilateral Eye PERRL, Bilateral Eye EOMI HEENT: PERRL/EOMI, TMs Normal, Normal ENT Inspection Neck: Full Range of Motion, Normal Inspection, Non Tender Respiratory: Chest Non Tender, Lungs Clear, Normal Breath Sounds, No Accessory Muscle Use Cardiovascular: Regular Rate, Rhythm, No Edema, No Gallop, No JVD, No Murmur Gastrointestinal: Normal Bowel Sounds, No Organomegaly, No Pulsatile Mass, Non Tender Back: Normal Inspection, No CVA Tenderness Extremity: Other (Swelling, tenderness to left big toe. Mild erythema without erythema streaking. Limited range of motion secondary to pain.) Neurologic/Psychiatric: Alert, Oriented x3, No Motor/Sensory Deficits Progress/Results/Core Measures Suspected Sepsis SIRS Temperature: Pulse: 88 Respiratory Rate: 18 Blood Pressure 113 /83 Mean: 93 Results/Orders My Orders Orders - HARITHA LOPEZ Dexamethasone Injection (Decadron Injec (06/10/21 14:00) Hydrocodone/Apap 7.5/325 Tab (Lortab 7. (06/10/21 13:53) Medications Given in ED Current Medications Medications Dose Ordered Sig/Kailey Route Start Time Stop Time Status Last Admin Dose Admin Dexamethasone Sodium Phosphate 10 mg ONCE ONCE IM 06/10/21 14:00 06/10/21 14:03 DC 06/10/21 14:10 10 MG Vital Signs/I&O 06/10/21 13:28 Temp 36.1 Pulse 88 Resp 18 B/P (MAP) 113/83 (93) Pulse Ox 97 O2 Delivery Room Air Capillary Refill : Less Than 3 Seconds Blood Pressure Mean: 93 Departure Communication (Admissions) Patient requesting dose of pain medication and IM steroid. Requesting Medrol Dosepak as he states this typically helps in the past. He refuses of any pain medication. No trauma. History of gout with similar type pain. Today's results appear to be gout. patient will be discharged with Medrol Dosepak. Currently on allopurinol. Outpatient follow up Impression Primary Impression: Gout Disposition: 01 HOME, SELF-CARE Condition: Stable Departure-Patient Inst. Decision time for Depature: 13:54 Referrals: NO,LOCAL PHYSICIAN (PCP/Family) Primary Care Physician Patient Instructions: Gout (DC) Scripts Methylprednisolone (Methylprednisolone Dose Pack) 4 Mg Tab.ds.pk 4 MG PO UD for 6 Days, #21 PKG PER DOSE PACK INSTRUCTIONS Prov: HARITHA LOPEZ 06/10/21 HARITHA LOPEZ Jun 10, 2021 13:52
[2021-06-10] MEDS ORDERED: HYDROcodone/APAP 7.5 MG/325 MG (LORTAB, LORCET PLUS) TABLET PO STA (13:53)
[2021-06-10] MEDS ORDERED: METH4TAB10 PO (13:56)
[2021-06-10 14:16] VITALS: BP 124/73
== END 2021-06-10 14:16 | disposition home or self-care (01) ==
LOC: ER 13:15 → EDUNIT# 13:24 → ER 14:16
DX: M10.9 Gout, unspecified (principal); K21.9 Gastro-esophageal reflux disease without esophagitis; Z79.899 Other long term (current) drug therapy
CPT/HCPCS: 99284